=== PATIENT | male | born 1995 | race Caucasian/White ===

== ENCOUNTER 2018-04-11 00:55 | Emergency (ER) | payer SELFPAY ==
--- NOTE | 2018-04-11 00:55 | DT_ITS ---
This patient was seen during an EMR downtime April 07, 2018 - April 14, 2018. This patient may have a combination of paper and electronic documentation or all paper documentation. All documentation is viewable within the e-chart portion of [facility] for each patient visit.
== END 2018-04-11 02:02 | disposition home or self-care (01) ==
PROVIDERS: Emergency Provider Emergency Medicine
DX: R11.2 Nausea with vomiting, unspecified (principal); R10.13 Epigastric pain; F17.200 Nicotine dependence, unspecified, uncomplicated; F17.220 Nicotine dependence, chewing tobacco, uncomplicated
CPT/HCPCS: 99283

== ENCOUNTER 2020-01-25 20:01 | Emergency (ER) | payer SELFPAY ==
[2020-01-25 20:03] VITALS: BP 137/83; PULSE 107; RESP 18; TEMP 36.4; O2SAT 95; BMI 34.0
--- NOTE | 2020-01-25 20:17 | ED.DEP ---
ED Disposition - Plan for ED Patient: Instructions: Dental Pain Prescriptions: Naproxen [Naprosyn] 500 mg PO BID PRN #20 tablet Penicillin V Potassium 500 mg PO 4X/DAY #40 tablet Referrals: Care Physician,No Primary [Primary Care Provider] -
--- NOTE | 2020-01-25 20:21 | ED.VISSUMM ---
- ER Visit Summary Date of Service: 01/25/20 Chief Complaint: Gum pain History of Present Illness: The patient is a 24 M presenting with pain in his left upper gums and teeth for the past week. He states he has been unable to get into a dentist due to the coronavirus outbreak. He denies fever. He has had these symptoms in the past. Denies other complaints. Physical Examination: Vitals are stable. Patient is afebrile. Alert no acute distress. HEENT exam widespread dental decay. Gums are erythematous. No fluctuance. No sublingual edema. Neck is supple. Lungs are clear and equal bilaterally. Heart is regular rate and rhythm. Extremities are unremarkable. Skin is warm and dry. Remainder of exam is unremarkable. Emergency Department Course and Treatment: There is no area of fluctuance amenable for I&D at this time. He is given prescription for Pen-Vee K. Advised to return to the ED if he has any worsening complaints. Advised to follow-up with dentist when able. Disposition: Discharge home Impression: Odontalgia This note was generated with [employer] dictation software. It may contain incorrect words, spelling, and punctuation that were not noted in review of the chart prior to signing ED Disposition - Plan for ED Patient: Instructions: Dental Pain Prescriptions: Naproxen [Naprosyn] 500 mg PO BID PRN #20 tab Prescription Printed Penicillin V Potassium 500 mg PO 4X/DAY #40 tab Prescription Printed Referrals: Care Physician,No Primary [Primary Care Provider] -
[2020-01-25] MEDS: Naproxen 500 MG Tablet PO (20:36)
[2020-01-25] MEDS: Penicillin Vk 250 MG Tablet 500 MG PO (20:36)
[2020-01-25 20:38] VITALS: RESP 17
== END 2020-01-25 20:38 | disposition home or self-care (01) ==
LOC: ED 20:29
PROVIDERS: Emergency Provider Emergency Medicine
DX: K08.89 Other specified disorders of teeth and supporting structures (principal); K02.9 Dental caries, unspecified; Z72.0 Tobacco use
CPT/HCPCS: 99283

== ENCOUNTER 2020-02-28 19:42 | Emergency (ER) | payer SELFPAY ==
[2020-02-28 19:43] VITALS: BP 143/86; PULSE 92; RESP 18; TEMP 36.4; O2SAT 95; BMI 29.2
--- NOTE | 2020-02-28 19:57 | ED.DCSUM_ITS ---
- ER Visit Summary Date of Service: 02/28/20 Chief Complaint: Dental pain History of Present Illness: The patient is a 24 M who cannot remember his dentist name and does not have a primary care physician. He reports he has pain in his left mandibular second molar that began approximately 1 week ago. States that it seems to be spreading through his gums. States he has an aching pain is 1010 at worst and 6 out of 10 currently. Is worsened by eating and he is taking ibuprofen without relief. Does complain of hot and cold sensitivity. Patient reports that he was here a month ago and was not given a prescription for an antibiotic. Physical Examination: Vitals: Stable. Afebrile. Mouth: No trismus. No edema of the floor of the mouth. Pain with percussion of of the left mandibular first and second molars. There are obvious caries and decay at the lateral base of the second molar. There is no focal abscess. No facial swelling. General: A&O x 3. NAD. Cardiovascular exam: Regular rate and rhythm, no murmur, rub or gallop. Respiratory exam: Clear to auscultation bilaterally. No wheezes or stridor. Abdominal exam: Soft, nontender, nondistended, normal bowel sounds. No peritoneal signs. Extremity: No clubbing, cyanosis, or edema. Emergency Department Course and Treatment: Patient was given a dose of penicillin, naproxen, and Tylenol here. Treatment Plan: Discussed the patient that he was given a prescription for penicillin last time. It is up to him to get this prescription that he is given again for penicillin filled and to take it. Follow-up with a dentist as soon as possible. Disposition: To home in improved and stable condition. Impression: 1. Dental pain. This note was generated with [employer] software. It may contain incorrect words, spelling, and punctuation that were not noted in review of the chart prior to signing ED Disposition - Plan for ED Patient: Disposition: Home or Assisted Living Instructions: ED Tooth Pain Prescriptions: Naproxen [Naprosyn] 500 mg PO BID #14 tab Prescription Printed Penicillin V Potassium 500 mg PO 4X/DAY #40 tab Prescription Printed Referrals: Dentist,Your [STAFF PHYSICIAN] - As soon as possible
[2020-02-28] MEDS: Naproxen 250 MG Tablet 500 MG PO (20:05)
[2020-02-28] MEDS: Penicillin Vk 250 MG Tablet 500 MG PO (20:05)
[2020-02-28] MEDS: Acetaminophen 500 MG Tablet 1000 MG PO (20:06)
[2020-02-28 20:10] VITALS: RESP 16
== END 2020-02-28 20:11 | disposition home or self-care (01) ==
LOC: ED 20:08
PROVIDERS: Emergency Provider Emergency Medicine
DX: K08.89 Other specified disorders of teeth and supporting structures (principal); R05 Cough; R11.0 Nausea; Z72.0 Tobacco use
CPT/HCPCS: 99283

== ENCOUNTER 2021-01-22 22:04 | Emergency (ER) | payer SELFPAY ==
[2021-01-22 22:04] VITALS: BP 136/89; PULSE 89; RESP 18; TEMP 36.3; O2SAT 94; BMI 34.8
--- NOTE | 2021-01-22 22:11 | ED.DCSUM_ITS ---
History of Present Illness Chief Complaint: Headache Informant: Patient Onset: Yesterday Context: Gradual Onset Timing: Continuous Current Severity: Moderate Maximum Severity: Moderate Narrative: Patient is a 25-year-old male presents to the emergency department dental pain and headache. Patient states that he chipped his tooth about 3 days ago. Over the past 24 hours, has had increasing pain. He states is very tender. He states because of that, he developed a secondary headache. He denies fever or chills. He has been nauseated. He states he had about 6 episodes of vomiting. He denies vision change, neck pain, or other systemic symptoms. He denies trouble speaking or swallowing. Prior similar symptoms: Yes Recent Illness/Hospitalization: No Past Medical History - Allergies and Home Meds Allergies/Adverse Reactions: Allergies No Known Allergies Allergy (Verified 02/28/20 19:43) Primary Care Physician: Care Physician,No Primary [Primary Care Provider] - Prior records reviewed: Yes Past Medical History: None Surgical History: no surgical history Smoking Status: Current every day smoker Review of Systems General: Denies: Chills, Fever, Sweats Eyes: Denies: Visual changes - bilaterally, Diplopia ENT: Denies: Rhinorrhea, Sore throat Cardiovascular: Denies: Chest pain, Palpitations Respiratory: Denies: Dyspnea, Cough, Dyspnea on exertion Gastrointestinal: Reports: Nausea, Vomiting. Denies: Abdominal pain, Diarrhea, Melena, Hematochezia Genitourinary: Denies: Dysuria, Hematuria, Frequency Musculoskeletal: Denies: Back pain, Extremity Pain Skin: Denies: Rash, Wounds Neurological: Reports: Headache. Denies: Weakness, Numbness Physical Exam Vital Signs/Narrative: Vital Signs Temp Pulse Resp BP Pulse Ox 01/22/21 22:04 97.4 F L 89 18 136/89 H 94 Inital Vital Signs reviewed: Yes General: Well nourished, Well developed, No Acute Distress Head: Normocephalic, Atraumatic Eyes: Perrl, EOMI ENT: Moist mucous membranes, No rhinorrhea, - - Oromucosa is pink. The patient does have small dental chip Neck: Supple, Nontender Cardiovascular: Regular rate, Regular rhythm, No murmurs Respiratory: No distress, CTA bilaterally, Chest nontender Abdomen: Soft, Nontender, Nondistended, Normal bowel sounds Back: Nontender, Normal Inspection Extremities: Nontender, No edema Skin: Normal color, No rash Neurological: Alert, Oriented x3, Cranial nerves II-XII grossly intact, Normal Strength, Normal Sensation Psychological: Normal affect, Normal Mood Diagnostic/Tx/Re-eval - Medical Decision Making Patient presents with headache, nausea, vomiting, dental pain. He is very well- appearing. He is not meningitic or encephalopathic. There is no evidence of Valerio angina. He has no submental fullness. Patient was treated with IM Toradol and Phenergan. He will be kept on Zofran and Naprosyn, along with penicillin. He will be given outpatient dentistry follow-up. Impression 1. Dental pain ED Disposition - Plan for ED Patient: Instructions: ED Dental Pain Prescriptions: Naproxen [Naprosyn] 500 mg PO BID PRN #20 tablet Prescription Printed Penicillin V Potassium 500 mg PO 4X/DAY #40 tablet Prescription Printed Ondansetron [Zofran Odt] 4 mg PO Q8H PRN PRN #10 tablet PRN Reason: Nausea Prescription Printed Referrals: Care Physician,No Primary [Primary Care Provider] -
[2021-01-22] MEDS: Ketorolac 60 MG/2 ML Vial IM (22:22)
[2021-01-22] MEDS: proMETHazine 25 MG/ML Syringe 12.5 MG IM (22:22)
== END 2021-01-22 22:38 | disposition home or self-care (01) ==
LOC: ED 22:35
PROVIDERS: Emergency Provider Emergency Medicine
DX: K08.89 Other specified disorders of teeth and supporting structures (principal); S02.5XXA Fracture of tooth (traumatic), initial encounter for closed fracture; X58.XXXA Exposure to other specified factors, initial encounter; Y93.9 Activity, unspecified; Y92.9 Unspecified place or not applicable; Y99.9 Unspecified external cause status; R51.9 Headache, unspecified; R11.2 Nausea with vomiting, unspecified; F17.200 Nicotine dependence, unspecified, uncomplicated
CPT/HCPCS: 96372; 99282

== ENCOUNTER 2021-05-05 12:00 | Emergency (ER) | payer SELFPAY ==
[2021-05-05 12:00] VITALS: BP 136/81; PULSE 101; RESP 16; TEMP 36.5; O2SAT 92; BMI 34.9
--- NOTE | 2021-05-05 12:24 | EX.ED.VIS.UR ---
HPI HPI - URI History of Present Illness Chief Complaint: Cold Sx Informant: patient Onset/Context/Timing Onset: Days Current Severity: Mild Maximum Severity: Mild Associated Symptoms Associated Symptoms: Positive for Nasal Congestion and Sinus Pressure; Negative for Shortness of Breath Narrative Narrative: 26-year-old male no severe past medical or surgical history. Currently on no medications. States has had URI symptoms since Saturday evening. Sinus congestion stuffy nose. Fever as high as 100.4. He denies any chest pain or shortness of breath. Mild cough. He states nasal drainage is green. He denies any abdominal pain. No vomiting or diarrhea. No sore throat. He and his female friend is with him want the patient to have Covid testing. Prior similar symptoms: Yes Recent Illness/Hospitalization: No ROS ROS ED ROS Narrative URI symptoms with cough, nasal congestion and mild fever. Review of Systems ROS Unobtainable: Denies due to encephalopathy Constitutional Constitutional ED: Reports fever(s) Eyes Eyes: Denies change in vision ENT ENT ED: Reports rhinorrhea; Denies ear pain or sore throat Cardiovascular Cardiovascular: Denies chest pain Respiratory/Chest Respiratory/Chest: Reports cough and sputum; Denies dyspnea Gastrointestinal Gastrointestinal: Denies abdominal pain, diarrhea, nausea or vomiting Genitourinary Genitourinary ED: Denies dysuria Musculoskeletal Musculoskeletal: Denies myalgias Integumentary Denies rash Neurologic Neurologic: Denies headache(s) Psychiatric Psychiatric: Denies depression Endocrine Endocrinology: Denies polyuria Hematologic/Lymphatic Hematologic/Lymphatic: Denies easy bruising Allergic/Immunologic Allergic/Immunologic ED: Denies urticaria PFSH PFSH no medical history Home Medications naproxen 500 mg PO BID PRN #20 tablet 01/22/21 [Rx Last Taken Unknown] ondansetron 4 mg PO Q8H PRN PRN #10 tablet 01/22/21 [Rx Last Taken Unknown] penicillin V potassium 500 mg PO 4X/DAY #40 tablet 01/22/21 [Rx Last Taken Unknown] Allergy/AdvReac Type Severity Reaction Status Date / Time No Known Allergies Allergy Verified 05/05/21 12:05 no surgical history Social History Smoking Status: Current every day smoker tobacco type: cigarettes EXAM Physical Exam Narrative Exam Narrative: Well-appearing male. Vital signs stable afebrile. Pulse ox 92% on room air no signs hypoxia. HEENT exam nasal congestion. Clear to green nasal drainage. TMs and posterior pharynx normal. Const Vital Signs: 05/05/21 12:00 05/05/21 12:42 Temperature 97.7 F L Temperature Source Temporal Pulse Rate 101 H Respiratory Rate 16 Respiratory Effort Normal Respiratory Depth Normal Respiratory Pattern Normal Blood Pressure 136/81 H Blood Pressure Mean 99 Pulse Ox 92 Oxygen Delivery Method Room Air Room Air Positive well nourished and well developed General Appearance ED: well developed; Negative for pallor HEENT Reports TM's clear and moist mucous membranes normocephalic and atraumatic; Negative for scalp tenderness Face and Sinus: Negative for sinus tenderness or facial tenderness External Ear: external ears normal External Auditory Canal: EAC's normal Tympanic Membrane ED: Yes TM's clear Eyes PERRL and EOMs intact bilaterally Neck no lymphadenopathy, supple, no meningeal signs and no JVD General: Negative for anterior neck swelling Resp normal respiratory effort and clear to auscultation bilaterally Auscultation: Negative for rales, rhonchi or wheezes Cardio S1 normal heart sound, S2 normal heart sound and no murmurs Rate: regular rate Rhythm: regular rhythm GI non-tender, non-distended and no masses Auscultation: normoactive bowel sounds Palpation: soft; Negative for tender or guarding Back/Spine no CVA tenderness and normal ROM General Back: Negative for CVA tenderness Cervical Spine: Negative for cervical spine tenderness Extremity normal to inspection Neuro oriented x3 and CN's II-XII intact bilaterally Sensorium / Orientation: alert, oriented to person, oriented to place and oriented to time; Negative for orientation impaired, lethargic or stuporous Motor Exam: strength 5/5 throughout; Negative for general weakness Psych mental status grossly normal Skin General Skin Exam: Negative for jaundice or pallor Lesions: no lesions Rashes: no rashes MDM MDM MDM Narrative Medical decision making narrative: 26-year-old male history exam consistent with a viral URI. Requested Covid testing which is being obtained. Lab Data Attestation: I reviewed the patient's lab results. Lab results narrative: Covid test negative. Patient is doing well on repeat exam at 1:36 PM and will be discharged home. Discharge Plan Triage Chief Complaint: Cold Sx ED Provider: Leandro Leigh Dx/Rx/DC Orders Clinical Impression: Viral upper respiratory infection Instructions: ED Viral Syndrome (Adult) Prescriptions: No Action penicillin V potassium 500 MG tablet 500 mg PO 4X/DAY Qty: 40 RF: 0 ondansetron 4 MG tablet 4 mg PO Q8H PRN PRN (Reason: Nausea) Qty: 10 RF: 0 naproxen 500 MG tablet 500 mg PO BID PRN Qty: 20 RF: 0 Primary Care Provider: Care Physician,No Primary Referrals: Abdiel Flores MD [STAFF PHYSICIAN] - 1 Week if not improving Care Physician,No Primary [Primary Care Provider] - Activity Restrictions/Additional Instructions: Plenty of fluids and rest. Tylenol and Motrin for body aches and any fever. Follow-up if not improving in a week. Return if feeling a lot worse. Disposition Disposition: Home, Self Care
[2021-05-05 12:42] VITALS: O2SAT 96
== END 2021-05-05 14:35 | disposition home or self-care (01) ==
LOC: ED 12:36
PROVIDERS: Emergency Provider Emergency Medicine
DX: J06.9 Acute upper respiratory infection, unspecified (principal); Z20.822 Contact with and (suspected) exposure to COVID-19; F17.210 Nicotine dependence, cigarettes, uncomplicated
CPT/HCPCS: 87426; 99282

== ENCOUNTER 2021-09-30 11:43 | Emergency (ER) | payer MEDICARE, SELFPAY ==
[2021-09-30 11:44] VITALS: BP 187/97; PULSE 90; RESP 20; TEMP 36.1; O2SAT 96; BMI 30.7
[2021-09-30 11:47] VITALS: BP 187/97; PULSE 90; RESP 20; TEMP 36.1; O2SAT 95
[2021-09-30 11:52] VITALS: O2SAT 95; O2SAT 96
--- NOTE | 2021-09-30 12:25 | EKG12_ITS ---
Test Reason : SOB Blood Pressure : / mmHG Vent. Rate : 088 BPM Atrial Rate : 088 BPM P-R Int : 146 ms QRS Dur : 094 ms QT Int : 342 ms P-R-T Axes : 058 026 037 degrees QTc Int : 413 ms Normal sinus rhythm Normal ECG Confirmed by ANTWON ALAN, LIAM ([id number]), editor house organ LORAINE JAVIER ([id number]) on 10/03/2021 8:51:54 AM Referred By: ORLIN/RUSS Confirmed By:LIAM KAPOOR MD
--- NOTE | 2021-09-30 12:26 | EDS_ITS ---
HPI History of Present Illness Chief Complaint: Shortness of Breath Informant: patient Narrative Narrative: 26-year-old male states that yesterday morning around 0200 hrs. he woke up short of breath. States he believes he stopped breathing in his sleep. Could not catch his breath so he went to [place] ED. Patient is a very poor historian and has no linear timeline of explaining to me what has been going on and only give partial answers to questions. But I get the impression they did a chest x-ray and a Covid test was negative and given prescription for an inhaler. He states that now he has developed a pain in his right shoulder and has a sensation that his lungs are on fire. He notes a cough and nasal congestion. He told nursing he lost his sense of taste and smell. No fevers. PFSH PFSH Home Medications naproxen 500 mg PO BID PRN #20 tablet 01/22/21 [Rx Last Taken Unknown] ondansetron 4 mg PO Q8H PRN PRN #10 tablet 01/22/21 [Rx Last Taken Unknown] penicillin V potassium 500 mg PO 4X/DAY #40 tablet 01/22/21 [Rx Last Taken Unknown] doxycycline monohydrate 100 mg PO BID #20 capsule 09/30/21 [Rx Last Taken Unknown] Allergy/AdvReac Type Severity Reaction Status Date / Time No Known Allergies Allergy Verified 09/30/21 11:47 Social History Smoking Status: Current every day smoker tobacco type: cigarettes ROS ROS ED Constitutional Constitutional ED: Denies chills, fever(s) or weight loss Eyes Eyes: Denies change in vision or diplopia ENT ENT ED: Reports other Details: Nasal congestion ; Denies ear pain, rhinorrhea or sore throat Cardiovascular Cardiovascular: Reports chest pain; Denies orthopnea, palpitations or racing heartbeat Respiratory/Chest Respiratory/Chest: Reports cough, dyspnea and dyspnea on exertion; Denies orthopnea Gastrointestinal Gastrointestinal: Denies abdominal pain, diarrhea, nausea or vomiting Genitourinary Genitourinary ED: Denies dysuria, hematuria or urinary frequency Musculoskeletal Musculoskeletal: Denies arthralgias or myalgias Integumentary Denies abscess or rash Neurologic Neurologic: Denies headache(s) or weakness Psychiatric Psychiatric: Denies anxiety, depression, suicidal ideation or suicidal thoughts Endocrine Endocrinology: Denies polydipsia, polyphagia or polyuria Allergic/Immunologic Allergic/Immunologic ED: Denies mouth swelling, tongue swelling or urticaria EXAM Physical Exam Const Vital Signs: 09/30/21 11:44 09/30/21 11:47 09/30/21 11:52 Temperature 97 F L 97 F L Temperature Source Temporal Temporal Pulse Rate 90 90 Respiratory Rate 20 H 20 H Respiratory Effort Short of Breath Labored Respiratory Depth Normal Blood Pressure 187/97 H 187/97 H Blood Pressure Mean 127 127 Pulse Ox 96 95 95 Oxygen Delivery Method Room Air Room Air Room Air 09/30/21 13:16 09/30/21 13:35 Temperature Temperature Source Pulse Rate 89 65 Respiratory Rate 16 16 Respiratory Effort Respiratory Depth Blood Pressure 111/64 Blood Pressure Mean 79 Pulse Ox 95 Oxygen Delivery Method Room Air Positive well nourished, well developed and obese General Appearance ED: well developed Nutritional Appearance: obese HEENT Reports normocephalic, head/scalp atraumatic, TM's clear and moist mucous membranes HEENT Narrative: Mild turbinate edema atraumatic Tympanic Membrane ED: Yes TM's clear Eyes PERRL and EOMs intact bilaterally Neck no lymphadenopathy, supple and no JVD Resp normal respiratory effort and clear to auscultation bilaterally Cardio regular rate, regular rhythm and no murmurs GI normal to inspection, nondistended, normoactive bowel sounds and non-tender Palpation: soft Back/Spine no CVA tenderness and normal ROM Extremity normal to inspection General Extremety ED: Negative for edema General Extremity: Negative for edema Neuro oriented x3 and CN's II-XII intact bilaterally Sensorium / Orientation: alert Motor Exam: strength 5/5 throughout Psych mental status grossly normal Mood & Affect: Negative for depressed or tearful Skin no rashes or lesions noted and no wounds MDM MDM MDM Narrative Medical decision making narrative: Interpretation of chest x-ray is possible early infiltrate on the right. White count is elevated 18.4. D-dimer 0.28. Troponin negative. Patient received a dose of Toradol and a DuoNeb. He is feeling better. His Covid swab is negative. Patient will prescribe doxycycline. He has an inhaler. Continued anti-inflammatories follow-up with primary care if not improved return if worsening or concerns Lab Data Attestation: I reviewed the patient's lab results. Labs: Laboratory Results - last 24 hr 09/30/21 09/30/21 09/30/21 12:45 12:45 12:45 WBC 18.4 H RBC 5.33 Hgb 16.1 Hct 48.5 MCV 91.0 MCH 30.2 MCHC 33.2 RDW Std Deviation 43.1 RDW Coeff of Angeli 13.0 Plt Count 362 MPV 9.9 Immature Gran % (Auto) 0.300 Neut % (Auto) 68.8 Lymph % (Auto) 20.5 [place] % (Auto) 6.9 Eos % (Auto) 3.0 Baso % (Auto) 0.5 Absolute Neuts (auto) 12.6 H Absolute Lymphs (auto) 3.77 Nucleated RBC % 0 D-Dimer Quant (PE/DVT) 0.28 Sodium 142 Potassium 4.6 Chloride 111 H Carbon Dioxide 29.0 Anion Gap 2 L BUN 10 Creatinine 1.10 Estim Creat Clear Calc 108.39 Est GFR (MDRD) Af Amer 104 Est GFR (MDRD) Non-Af 86 BUN/Creatinine Ratio 9.1 L Glucose 91 Calcium 9.4 Troponin I High Sens < 3 L Radiography Diagnostic Testing: Clinical Impression(s) from Imaging Studies Chest X-Ray 09/30/21 12:50 IMPRESSION: Subtle prominent interstitial markings could reflect early infiltrates. Electronically Signed: Martinez Lidya, at 13:08 EST Tel , Service support , EKG Initial EKG: Attestation: I personally reviewed and interpreted this EKG as follows: Comments: Normal sinus rhythm with a ventricular rate of 88 bpm. Discharge Plan Triage Chief Complaint: Shortness of Breath ED Provider: Boogie Cuellar Dx/Rx/DC Orders Clinical Impression: Pneumonia Instructions: ED Pneumonia (Adult) Prescriptions: New doxycycline monohydrate 100 MG capsule 100 mg PO BID Qty: 20 RF: 0 No Action penicillin V potassium 500 MG tablet 500 mg PO 4X/DAY Qty: 40 RF: 0 ondansetron 4 MG tablet 4 mg PO Q8H PRN PRN (Reason: Nausea) Qty: 10 RF: 0 naproxen 500 MG tablet 500 mg PO BID PRN Qty: 20 RF: 0 Primary Care Provider: Care Physician,No Primary Referrals: Rosina Lancaster [NON-STAFF] - As Needed (for primary care) Care Physician,No Primary [Primary Care Provider] - Disposition Disposition: Home, Self Care
[2021-09-30] MEDS: Ketorolac 30 MG/ML Syringe IV (12:45)
--- NOTE | 2021-09-30 12:50 | RAD_ITS ---
STUDY: X-RAY CHEST REASON FOR EXAM: Male, 26 years old. Cough. TECHNIQUE: Single AP portable view of the chest. COMPARISON: None. FINDINGS: Subtle prominent interstitial markings could represent early infiltrates. There is no demonstrated pleural abnormality. Borderline cardiac silhouette. Normal mediastinum and jai. Normal visualized pulmonary arteries. Normal visualized aortic arch and descending thoracic aorta. Normal visualized thoracic spine. Normal visualized ribs, clavicles, and shoulders. There is no demonstrated abnormality of the visualized soft tissue structures of the upper abdomen. RAD/Chest 1 View (Portable) IMPRESSION: Subtle prominent interstitial markings could reflect early infiltrates. Electronically Signed: Martinez Bose, at 13:08 EST Tel , Service support ,
[2021-09-30 13:00] LABS: Absolute Lymphocyte Count 3.77 X10^3/uL (0.83-4.51); Absolute Neutrophil Count 12.6 X10^3/uL (2.0-7.7); Basophil% 0.5 % (0-1); Eosinophil# 0.56 X10^3/uL; Hematocrit 48.5 % (40-54); Hemoglobin 16.1 g/dL (13.0-16.5); Lymphocyte # 3.77 X10^3/ul (0.83-4.51); Lymphocyte % 20.5 % (19-41); Mean Corp Hgb Conc 33.2 g/dL (32-36); Mean Corpuscular Hgb 30.2 pg (27.0-32.0); Mean Platelet Vol. 9.9 fl (6.2-12.0); Monocyte# 1.26 X10^3/uL; Monocyte% 6.9 % (0-10); NRBC Flagged by Analyzer 0 % (0-5); Neutrophil # 12.62 X10^3/uL (2.7-7.7); Neutrophil % 68.8 % (47-70); Platelet Count 362 K/mm3 (150-450); RBC Distribution Width SD 43.1 fl (35.1-43.9); Red Blood Count 5.33 M/mm3 (4.6-6.2); White Blood Count 18.4 K/mm3 (4.4-11.0)
[2021-09-30 13:08] LABS: D-Dimer Quantitative (DVT/PE) 0.28 FEU/ug/m (0.27-0.49)
[2021-09-30 13:16] VITALS: BP 111/64; PULSE 89; RESP 16; O2SAT 95
[2021-09-30 13:28] LABS: Anion Gap 2 (5-15); BUN 10 mg/dL (7-18); BUN/Creat Ratio 9.1 RATIO (10-20); Calcium,Total 9.4 mg/dL (8.5-10.1); Chloride 111 mmol/L (98-107); EST Glomerular Filtration Rate 86 mL/min (>60); Est Glom Filt Rate - Afr Amer 104 mL/min (>60); Estimated Creatinine Clearance 108.39 ml/min; Glucose 91 mg/dL (74-106); Potassium 4.6 mmol/L (3.5-5.1); Sodium Level 142 mmol/L (136-145); Troponin-I HS < 3 pg/mL (3.0-78.0)
[2021-09-30] MEDS: Ipratropium/Albuterol Sulfate 3 ML AMPUL.NEB INHALATION (13:32)
[2021-09-30 13:35] VITALS: PULSE 65; RESP 16
== END 2021-09-30 14:26 | disposition home or self-care (01) ==
PROVIDERS: Emergency Provider Emergency Medicine
DX: J18.9 Pneumonia, unspecified organism (principal); Z20.822 Contact with and (suspected) exposure to COVID-19; M25.511 Pain in right shoulder; E66.9 Obesity, unspecified; F17.210 Nicotine dependence, cigarettes, uncomplicated
CPT/HCPCS: 71045; 80048; 84484; 85025; 85379; 87426; 93005; 94640; 96374; 99282

== ENCOUNTER 2022-07-15 13:38 | Emergency (ER) | payer OTHER, SELFPAY ==
[2022-07-15 13:39] VITALS: BP 128/82; PULSE 93; RESP 18; TEMP 37.2; O2SAT 94; BMI 30.7
--- NOTE | 2022-07-15 14:53 | EDS_ITS ---
HPI HPI - URI History of Present Illness Chief Complaint: Shortness of Breath Detail of Chief Complaint: Cough and shortness of breath that started 5 days ago Informant: patient Narrative Narrative: Patient presents to the emergency department complaint of not feeling well for the last 5 days. Patient started with a cough and he thought he had a head cold. Patient complains of wheezing and he ran out of his inhaler. He has a history of asthma. He denies fever. He did have a coworker recently that was sick but was not diagnosed with COVID. Patient tested for COVID at home yesterday and was negative. Cough mostly nonproductive. Patient denies sore throat or headache. ROS ROS ED Review of Systems ROS Unobtainable: other Constitutional Constitutional ED: Reports lethargy; Denies chills, fever(s), sweats or weight loss Eyes Eyes: Denies blurry vision, change in vision or diplopia ENT ENT ED: Denies rhinorrhea or sore throat Cardiovascular Cardiovascular: Denies chest pain, orthopnea or racing heartbeat Respiratory/Chest Respiratory/Chest: Reports cough, dyspnea and dyspnea on exertion; Denies orthopnea or sputum Gastrointestinal Gastrointestinal: Denies abdominal pain, diarrhea, nausea or vomiting Genitourinary Genitourinary ED: Denies dysuria, hematuria or urinary frequency Musculoskeletal Musculoskeletal: Denies arthralgias, back pain, myalgias or neck pain Integumentary Denies abscess, Abrasions or rash Neurologic Neurologic: Denies headache(s) or weakness Psychiatric Psychiatric: Denies anxiety, depression or suicidal thoughts Endocrine Endocrinology: Denies polydipsia, polyphagia or polyuria Hematologic/Lymphatic Hematologic/Lymphatic: Denies easy bleeding, easy bruising or lymphadenopathy Allergic/Immunologic Allergic/Immunologic ED: Denies mouth swelling, tongue swelling or urticaria [facility] Medical History (Updated 07/15/22 @ 16:[address] Carson Corbin DO) Asthma Home Medications doxycycline monohydrate 100 mg capsule 100 mg PO BID #20 CAPSULES 07/15/22 [Rx Last Taken Unknown] prednisone 20 mg tablet 20 mg PO BID #10 tabs 07/15/22 [Rx Last Taken Unknown] Allergy/AdvReac Type Severity Reaction Status Date / Time No Known Allergies Allergy Verified 07/15/22 13:39 Social History Smoking Status: Current every day smoker tobacco type: cigarettes EXAM Physical Exam Const Vital Signs: 07/15/22 13:39 07/15/22 14:25 07/15/22 14:59 Temperature 98.9 F Temperature Source Temporal Pulse Rate 93 91 Respiratory Rate 18 20 H Respiratory Effort Normal Respiratory Pattern Normal Normal Blood Pressure 128/82 H Blood Pressure Mean 97 Pulse Ox 94 Oxygen Delivery Method Room Air Positive well nourished and well developed General Appearance ED: well developed and NAD HEENT Reports TM's clear and moist mucous membranes normocephalic and atraumatic; Negative for trauma or tenderness Tympanic Membrane ED: Yes TM's clear Eyes PERRL and EOMs intact bilaterally General Eye ED: Negative for pale conjunctiva or scleral icterus Neck no lymphadenopathy, supple and no JVD General: Negative for tenderness Chest Wall inspection of chest normal and palpation of chest normal Chest: Negative for tenderness Resp normal respiratory effort Resp Narrative: Patient with diffuse wheezes bilaterally with occasional rhonchi. No accessory muscle use or retractions. No conversational dyspnea. Effort and Inspection: Negative for respiratory distress or pain with movement Auscultation: wheezes; Negative for rhonchi or diminished lung sounds Cardio regular rate, regular rhythm, S1 normal heart sound, S2 normal heart sound and no murmurs Peripheral Pulses: pulses 2+ throughout GI normal to inspection, nondistended, normoactive bowel sounds, soft to palpation, non-tender, non-distended and no masses Back/Spine no CVA tenderness and no thoracic nor lumbar tenderness Extremity normal to inspection General Extremety ED: Negative for edema General Extremity: Negative for edema Neuro oriented x3, CN's II-XII intact bilaterally, no sensory deficits noted and gait normal Sensorium / Orientation: awake, alert, oriented to person, oriented to place and oriented to time Motor Exam: strength 5/5 throughout and strength abnormal Psych mental status grossly normal Skin no rashes or lesions noted and no wounds MDM MDM MDM Narrative Medical decision making narrative: Patient with increased markings in his lung bases. I will start him on doxycycline. COVID test was negative. Patient was given a DuoNeb aerosol and prednisone and symptomatically felt improved. At this point patient will be given referral to primary care physician for follow-up in 3 to 5 days. Radiography Diagnostic Testing: Clinical Impression(s) from Imaging Studies Chest X-Ray 07/15/22 15:24 IMPRESSION: Mild inflammation or infection in the lung bases. Electronically Signed: Elise Isaac MD at 15:50 EDT , 1 view chest x-ray obtained interpreted by myself as increased markings in the basis I thought may be consistent with atelectasis. Radiology felt there was mild inflammation or infection in lung bases. Discharge Plan Triage Chief Complaint: Shortness of Breath ED Provider: Carson Corbin Dx/Rx/DC Orders Clinical Impression: Asthmatic bronchitis Instructions: ED Bronchitis with Wheezing (Adult) Prescriptions: New prednisone 20 mg tablet 20 mg PO BID Qty: 10 0RF doxycycline monohydrate 100 mg capsule 100 mg PO BID Qty: 20 0RF Primary Care Provider: Care Physician,No Primary Referrals: Jose Avelar MD [Med Staff - Active Staff] - 3-5 Days Care Physician,No Primary [Primary Care Provider] - Disposition Disposition: Home, Self Care
[2022-07-15] MEDS: predniSONE 20 MG Tablet 40 MG PO (14:54)
[2022-07-15] MEDS: Ipratropium/Albuterol Sulfate 3 ML AMPUL.NEB INHALATION (14:57)
[2022-07-15 14:59] VITALS: PULSE 91; RESP 20
--- NOTE | 2022-07-15 15:24 | RAD_ITS ---
HISTORY: cough. TECHNIQUE: XR Chest 1 View. COMPARISON: 09/30/2021. FINDINGS: CARDIOMEDIASTINAL BORDERS: Cardiac silhouette within normal limits in size. Mediastinal contour unremarkable. LUNGS: Increased interstitial markings in the lung bases. PLEURA: No pleural effusion or pneumothorax seen. OSSEOUS STRUCTURES: Unremarkable. RAD/Chest 1 View (Portable) IMPRESSION: Mild inflammation or infection in the lung bases. Electronically Signed: Elise Isaac MD at 15:50 EDT ,
[2022-07-15] MEDS: Doxycycline 100 MG CAPSULE PO (16:58)
[2022-07-15 17:05] VITALS: BP 140/104; PULSE 99; RESP 16; O2SAT 97
== END 2022-07-15 17:05 | disposition home or self-care (01) ==
PROVIDERS: Emergency Provider Emergency Medicine; Visit Provider Emergency Medicine
DX: J45.909 Unspecified asthma, uncomplicated (principal); Z20.822 Contact with and (suspected) exposure to COVID-19; F17.210 Nicotine dependence, cigarettes, uncomplicated
CPT/HCPCS: 71045; 87428; 94640; 99283

== ENCOUNTER 2023-05-04 16:37 | Emergency (ER) | payer SELFPAY ==
[2023-05-04 16:38] VITALS: BP 168/97; PULSE 988; RESP 16; TEMP 35.8; O2SAT 98; BMI 33.3
[2023-05-04 17:31] VITALS: O2SAT 97
--- NOTE | 2023-05-04 17:37 | EDS_ITS ---
HPI <RICA Rudd - Last Filed: 05/04/23 17:47> History of Present Illness Chief Complaint: Palpitations Narrative Narrative: Patient is a 28-year-old male with history of PTSD, anxiety, depression who presents to the emergency department for concerns of palpitations secondary to his new medication. Patient 2 days ago was placed on Wellbutrin, as well as fluoxetine. Patient states that the Wellbutrin is helping him quit smoking however the fluoxetine is causing him to have palpitations and feeling that he is short of breath. He had not felt this until he took the medications. Only taken 2 tabs. He called the nurse line who told him to come in to the emergency department. He denies any suicidal homicidal ideations. Patient denies any fever or chills. PFSH <RICA Rudd - Last Filed: 05/04/23 17:47> [facility] Medical History (Updated 05/04/23 @ 17:47 by RICA Rudd) Asthma Home Medications doxycycline monohydrate 100 mg capsule 100 mg PO BID #20 CAPSULES 07/15/22 [Rx Last Taken Unknown] prednisone 20 mg tablet 20 mg PO BID #10 tabs 07/15/22 [Rx Last Taken Unknown] Allergy/AdvReac Type Severity Reaction Status Date / Time bee venom protein (honey bee) Allergy Severe Anaphylaxis Verified 05/04/23 16:38 Social History Smoking Status: Current every day smoker tobacco type: cigarettes ROS <RICA Rudd - Last Filed: 05/04/23 17:47> ROS ED ROS Narrative Constitutional: Negative for fever, chills, weight loss, weakness Eyes: Negative for vision loss, vision change, double vision ENT: Negative for any sore throat, ear pain, congestion Cardiovascular: Negative for any chest pain, tightness. Positive palpitations Respiratory: Negative for any cough, sputum production, hemoptysis, dyspnea, dyspnea on exertion, orthopnea Gastrointestinal: Negative for any abdominal pain, nausea, vomiting, diarrhea, constipation, blood in stool, blood in vomit : Negative for any urinary frequency, dysuria, retention, blood in urine Muscle skeletal: Negative for any muscle joint pain, stiffness, myalgias, arthralgias, neck pain, back pain Neurological: Negative for any headache, syncope, numbness or tingling, dizziness Skin: Negative for any rashes, lumps, itching, abrasions, lacerations Psychiatric: Negative for any depression, anxiety, stress, suicidal ideation, homicidal ideation Hematologic: Negative for any easy bruising, excessive bruising, easy bleeding Allergies: Negative for any eczema, hives, rash EXAM <RICA Rudd - Last Filed: 05/04/23 17:47> Physical Exam Narrative Exam Narrative: Vital signs reviewed. Patient is alert and orient x4, patient is acting appropriate in no distress. HEET: Head normocephalic atraumatic, TMs clear bilaterally. Posterior pharynx is clear, moist mucous membranes. Nares clear bilaterally. Neck: Supple with no lymphadenopathy or tenderness. No signs of meningismus, negative jolt sign. Cardiac: Regular rate and rhythm no murmurs gallops or rubs, equal peripheral pulses bilaterally. Respiratory: Lungs clear to auscultation bilaterally. No chest tenderness. Abdomen: Soft, nontender, nondistended. No abdominal bruit or pulsatile masses. No hepatosplenomegaly Extremities: No peripheral edema, no signs of gross trauma or deformity. Active full range of motion of all extremities. Neuro: Cranial nerves II through XII intact, no focal neurological deficits. Skin: Clean dry and intact with no rash, purpura, petechiae, vesicles or pustules. Backs/flank: No CVA tenderness, no midline spinal tenderness, no deformity. Psych: Normal mood and affect. No SI, HI or acute psychosis. Const Vital Signs: 05/04/23 16:38 05/04/23 17:31 Temperature 96.5 F L Temperature Source Temporal Pulse Rate 988 H Respiratory Rate 16 Respiratory Effort Normal Non-Labored Respiratory Pattern Normal Blood Pressure 168/97 H Blood Pressure Mean 120 Pulse Ox 98 Oxygen Delivery Method Room Air Room Air <Dr. Bari Asencio MD - Last Filed: 05/05/23 00:55> Physical Exam Const Vital Signs: 05/04/23 16:38 05/04/23 17:31 Temperature 96.5 F L Temperature Source Temporal Pulse Rate 988 H Respiratory Rate 16 Respiratory Effort Normal Non-Labored Respiratory Pattern Normal Blood Pressure 168/97 H Blood Pressure Mean 120 Pulse Ox 98 Oxygen Delivery Method Room Air Room Air MDM <RICA Rudd - Last Filed: 05/04/23 17:47> [facility] EKG Normal sinus rhythm sinus arrhythmia: Attestation: I personally reviewed and interpreted this EKG as follows: Interpretation: Sinus Rhythm Comments: Normal sinus rhythm with sinus arrhythmia rate of 79 bpm, MO 144 ms, QRS duration 94 ms, no acute ST elevation, no acute infarct noted. Treatment and Re-Evaluation :: Patient appears generally well, patient appears nontoxic, vital signs are stable. Patient presents to the emergency department for concern of a adverse reaction to fluoxetine having palpitations, increased shortness of breath. Patient's EKG here had a heart rate of 79, patient appears well is in no distress. Patient's physical examination was grossly unremarkable, he had no adventitious lung sounds. Since the patient is only taken 2 tablets, he will stop the fluoxetine and follow-up in 2 days with his psychologist. He is happy with the plan of care, patient is in no distress. Patient's vital signs remained stable he was given return precautions. Patient stable for discharge. <Dr. Bari Asencio MD - Last Filed: 05/05/23 00:55> [facility] Narrative Medical decision making narrative: I have personally performed a face to face assessment of the patient and have reviewed the SHANIKA Note. I performed a substantive portion of the visit including all aspects of the following. My juan findings include: History: Patient complains that every time he takes fluoxetine he gets palpitations. He is not having symptoms now. He wants to know what he should do. Exam: Physical exam is normal. Unlike triage note, his heart rate is not 988. It is closer to 75. It is regular. His lungs are clear. Abdomen is benign. He has no peripheral edema or cords. He is awake alert and appropriate. Medical Decision Making: As patient has only had fluoxetine for 2 doses, I think we can stop this. There is no taper needed. He will contact his physician for further medication management Discharge Plan Triage Chief Complaint: Palpitations ED Midlevel Provider: Jose Heck ED Provider: Bari Asencio Dx/Rx/DC Orders Clinical Impression: Heart palpitations, Adverse drug reaction Instructions: ED Palpitations Prescriptions: No Action prednisone 20 mg tablet 20 mg PO BID Qty: 10 0RF doxycycline monohydrate 100 mg capsule 100 mg PO BID Qty: 20 0RF Stand Alone Forms: ED Work / School Excuse Primary Care Provider: Care Physician,No Primary Referrals: Care Physician,No Primary [Primary Care Provider] - Activity Restrictions/Additional Instructions: Please follow-up with your psychologist. Disposition Disposition: Home, Self Care Discharge Date/Time: 05/04/23 17:56
--- NOTE | 2023-05-04 17:52 | EKG12_ITS ---
Test Reason : CP/PALPITATIONS Blood Pressure : / mmHG Vent. Rate : 079 BPM Atrial Rate : 079 BPM P-R Int : 144 ms QRS Dur : 094 ms QT Int : 342 ms P-R-T Axes : 054 032 036 degrees QTc Int : 392 ms Normal sinus rhythm with sinus arrhythmia Normal ECG Confirmed by ANTWON ALAN, LIAM ([id number]), loan expeditor LORAINE JAVIER ([id number]) on 05/06/2023 12:37:17 PM Referred By: VERÓNICA/ANDER Confirmed By:LIAM KAPOOR MD
== END 2023-05-04 17:56 | disposition home or self-care (01) ==
PROVIDERS: Emergency Provider Emergency Medicine; Visit Provider Emergency Medicine
DX: R00.2 Palpitations (principal); F41.9 Anxiety disorder, unspecified; T50.905A Adverse effect of unspecified drugs, medicaments and biological substances, initial encounter; F17.210 Nicotine dependence, cigarettes, uncomplicated
CPT/HCPCS: 93005; 99282

== ENCOUNTER 2023-10-21 08:07 | Emergency (ER) | payer SELFPAY ==
[2023-10-21 08:08] VITALS: BP 134/85; PULSE 87; RESP 14; TEMP 36.6; O2SAT 98; BMI 34.3
--- NOTE | 2023-10-21 08:25 | ED.VIS.LOWEX ---
HPI History of Present Illness Chief Complaint: Lower Extremity Injury Narrative Narrative: 28-year-old male who denies significant past medical history presents with pain in both of his feet since yesterday. He states that he came to the emergency department yesterday because he had been walking in the rain, and his feet hurt. Additionally, he has to stand at work all day, does not drive, so he walks everywhere including to and from work. He states that his feet hurt him and he has bilateral foot pain. It is more of a burning pain and he feels like they are on fire. He saw the pharmacist who recommended a spray to use twice a day for a week. He was walking to work again today, and while he was not seen by a physician in the emergency department yesterday, he states he was told he has trench foot that he needs to keep his feet clean and dry. He change socks 3 times yesterday. He presents with worsening foot pain and redness. No fevers or chills, no other symptoms. [facility] Medical History Asthma Home Medications doxycycline monohydrate 100 mg capsule 100 mg PO BID #20 CAPSULES 07/15/22 [Rx Last Taken Unknown] prednisone 20 mg tablet 20 mg PO BID #10 tabs 07/15/22 [Rx Last Taken Unknown] Allergy/AdvReac Type Severity Reaction Status Date / Time bee venom protein (honey bee) Allergy Severe Anaphylaxis Verified 10/21/23 08:08 Social History Smoking Status: Current every day smoker tobacco type: cigarettes ROS ROS ED ROS Narrative Constitutional: No fever, no chills. HEENT: No sore throat. No neck pain. No loss of vision. No rhinorrhea. Cardiovascular: No chest pain. No palpitations. No pedal edema. Respiratory: No cough, no shortness of breath. Abdominal: No abdominal pain. No nausea. No vomiting. Genitourinary: No dysuria. No hematuria. Musculoskeletal: No myalgias. Lateral foot pain, burning. Neurologic: No headaches. No dizziness. No lightheadedness. Skin: No rash. Redness of both feet. Psychiatric: No depression. No anxiety. EXAM Physical Exam Narrative Exam Narrative: Focused physical examination reveals the patient to be afebrile. Vital signs noted. Nontoxic appearing. Regular rate and rhythm. Lungs clear to auscultation bilaterally. Abdomen soft and nontender with normal active bowel sounds. Inspection of the bilateral feet shows mild erythema and cracks in the skin consistent with tinea. There are calluses noted on his feet as well. Const Vital Signs: 10/21/23 08:08 Temperature 98 F Temperature Source Temporal Pulse Rate 87 Respiratory Rate 14 Blood Pressure 134/85 H Blood Pressure Mean 101 Pulse Ox 98 Oxygen Delivery Method Room Air MDM MDM MDM Narrative Medical decision making narrative: In the differential diagnosis is trench foot versus tinea pedis. I do not feel he has cellulitis of his feet that antibiotics are indicated. Given his burning sensation, he was told to keep his feet clean and dry, and use the [id number] spray. He will take [id number] analgesics. I do not feel narcotics are indicated. He will follow-up with a primary care provider and he was also referred to podiatry. He was given a note to be off work for today and tomorrow. I feel he can be discharged safely home with follow-up. Return instructions were reviewed. Disposition is discharged in stable condition. History & Record Review Discussion w/independent historian: Patient Additional record(s) reviewed:: Prior ED visit Discharge Plan Triage Chief Complaint: Lower Extremity Injury ED Provider: Norberto Card Dx/Rx/DC Orders Clinical Impression: Tinea pedis, Pain in both feet, Trench feet Instructions: ED Athlete's Foot, ED Screening Exam Medical Nonurgent, ED Pain, Acute, Uncertain Cause Prescriptions: No Action prednisone 20 mg tablet 20 mg PO BID Qty: 10 0RF doxycycline monohydrate 100 mg capsule 100 mg PO BID Qty: 20 0RF Stand Alone Forms: ED Work / School Excuse Primary Care Provider: Care Physician,No Primary Referrals: Marcos Valdivia DPM [Med Staff - Active Staff] - As Needed Rosina Lancaster [Non-Staff] - As soon as possible Care Physician,No Primary [Primary Care Provider] - Activity Restrictions/Additional Instructions: Keep your feet clean and dry. Use the spray that was given to you by the pharmacist. Ibuprofen as needed for pain. Disposition Disposition: Home, Self Care
== END 2023-10-21 08:38 | disposition home or self-care (01) ==
LOC: ED 08:36
PROVIDERS: Emergency Provider Emergency Medicine; Visit Provider Emergency Medicine
DX: B35.3 Tinea pedis (principal); M79.671 Pain in right foot; M79.672 Pain in left foot; J45.909 Unspecified asthma, uncomplicated; F17.210 Nicotine dependence, cigarettes, uncomplicated; Z79.899 Other long term (current) drug therapy
CPT/HCPCS: 99282

== ENCOUNTER 2023-11-07 09:37 | Emergency (ER) | payer SELFPAY ==
[2023-11-07 09:39] VITALS: BP 147/86; PULSE 115; RESP 24; TEMP 36; O2SAT 96; BMI 33.7
[2023-11-07 10:21] VITALS: BP 128/78; PULSE 87; RESP 20; TEMP 36.9; O2SAT 94
[2023-11-07] MEDS: Ibuprofen 600 MG Tablet PO (10:23)
[2023-11-07] MEDS: Acetaminophen 325 MG Tablet 650 MG PO (10:23)
--- NOTE | 2023-11-07 10:36 | EX.ED.DYSGE1 ---
HPI History of Present Illness Chief Complaint: Cold Sx Informant: patient Narrative Narrative: Patient is a 28-year-old male with history of vaping and mild intermittent asthma presenting with viral symptoms. Patient states he lost his sense of smell yesterday. Today he noticed that he lost his sense of taste when he tried eat breakfast this morning. He has been feeling tired and fatigued. He has sinus congestion and a mild itchy throat. He felt short of breath and his chest feels tight. He has a cough that is nonproductive. The symptoms started today. He took no [id number] cough medicine and states he was feeling better until he went to work and then he started feel really tired. States when he was walking here he coughs and when he almost threw up. Currently is feeling better now that he is resting. Does have a history of asthma but his albuterol inhaler is out. No other complaints or concerns at this time. No report of any fevers. [facility] Medical History Asthma Home Medications doxycycline monohydrate 100 mg capsule 100 mg PO BID #20 CAPSULES 07/15/22 [Rx Last Taken Unknown] prednisone 20 mg tablet 20 mg PO BID #10 tabs 07/15/22 [Rx Last Taken Unknown] albuterol sulfate 90 mcg/actuation aerosol inhaler (Ventolin HFA) 1 - 2 puff inhalation Q4H PRN PRN Wheezing #1 inh 11/07/23 [Rx Last Taken Unknown] Allergy/AdvReac Type Severity Reaction Status Date / Time bee venom protein (honey bee) Allergy Severe Anaphylaxis Verified 10/21/23 08:08 Social History Smoking Status: Current every day smoker tobacco type: cigarettes ROS ROS ED Constitutional Constitutional ED: Denies chills or fever(s) ENT ENT ED: Reports sore throat and other Details: Congestion, loss of sense of taste and smell ; Denies ear pain or rhinorrhea Cardiovascular Cardiovascular: Reports chest pain; Denies palpitations Respiratory/Chest Respiratory/Chest: Reports cough and dyspnea; Denies dyspnea on exertion Gastrointestinal Gastrointestinal: Reports nausea; Denies abdominal pain or vomiting Musculoskeletal Musculoskeletal: Reports myalgias; Denies arthralgias Integumentary Denies rash Neurologic Neurologic: Denies headache(s) or weakness Psychiatric Psychiatric: Reports anxiety Hematologic/Lymphatic Hematologic/Lymphatic: Denies easy bleeding or easy bruising EXAM Physical Exam Const Vital Signs: 11/07/23 09:39 11/07/23 09:38 11/07/23 10:21 Temperature 96.8 F L 98.4 F Temperature Source Temporal Oral Pulse Rate 115 H 87 Respiratory Rate 24 H 20 H Respiratory Effort Normal Non-Labored Respiratory Pattern Normal Blood Pressure 147/86 H 128/78 H Blood Pressure Mean 106 94 Pulse Ox 96 94 Oxygen Delivery Method Room Air Room Air 11/07/23 11:41 Temperature 98.4 F Temperature Source Pulse Rate 82 Respiratory Rate 16 Respiratory Effort Respiratory Pattern Blood Pressure Blood Pressure Mean Pulse Ox 94 Oxygen Delivery Method Positive well nourished and well developed General Appearance ED: well developed and NAD HEENT Reports TM's clear and moist mucous membranes HEENT Narrative: Minor nasal congestion on exam, normal oropharynx Tympanic Membrane ED: Yes TM's clear Eyes PERRL and EOMs intact bilaterally Neck no lymphadenopathy, supple and no JVD Chest Wall inspection of chest normal and palpation of chest normal Resp normal respiratory effort and clear to auscultation bilaterally Auscultation: Negative for rhonchi, wheezes or diminished lung sounds Cardio regular rate, regular rhythm and no murmurs GI normal to inspection, nondistended, normoactive bowel sounds and non-tender Extremity normal to inspection General Extremety ED: Negative for edema General Extremity: Negative for edema Neuro oriented x3 Sensorium / Orientation: alert Psych mental status grossly normal Mood & Affect: anxious Skin no rashes or lesions noted and no wounds MDM MDM MDM Narrative Medical decision making narrative: Patient is presenting with 24 hours of URI symptoms. Symptoms most consistent with COVID as he is also loss of sense of taste and smell. He appears nontoxic at this time. When he arrived to the ER he had walked here and he was mildly tachycardic and tachypneic however shortly after my evaluation his vital signs have completely normalized. He has clear breath sounds and is moving air well. Given the short onset of symptoms and the consolation of viral symptoms I do not think requires a chest x-ray or cardiopulmonary workup at this time. Will check for COVID, influenza and RSV as he is a candidate for antiviral therapy at this time. Is given Tylenol and Motrin in the ER for his myalgias. COVID, flu and RSV are negative. Patient counseled symptoms are still highly consistent with COVID-19 infection he should retest at home in 48 hours. Is given a prescription for an albuterol inhaler. Given a work note. Given return precautions. At this time we do not he requires steroids or antibiotics. He verbalizes agreement understand this plan. Discharged home in stable and improved condition. Discharge Plan Triage Chief Complaint: Cold Sx ED Provider: Michaela Storm Dx/Rx/DC Orders Clinical Impression: Viral upper respiratory infection Instructions: ED URI, Viral, No Abx (Adult) Prescriptions: New albuterol sulfate [Ventolin HFA] 90 mcg/actuation HFA aerosol inhaler 1 - 2 puff inhalation Q4H PRN PRN (Reason: Wheezing) Qty: 1 0RF No Action prednisone 20 mg tablet 20 mg PO BID Qty: 10 0RF doxycycline monohydrate 100 mg capsule 100 mg PO BID Qty: 20 0RF Stand Alone Forms: ED Work / School Excuse Primary Care Provider: Care Physician,No Primary Referrals: Rosina Lancaster [Non-Staff] - As soon as possible Care Physician,No Primary [Primary Care Provider] - Activity Restrictions/Additional Instructions: Profen and Tylenol. Use inhaler as prescribed. I recommend rechecking a home COVID test in 48 hours if you are still symptomatic. Your viral test for RSV, COVID and Flu. Disposition Disposition: Home, Self Care Discharge Date/Time: 11/07/23 12:46
[2023-11-07 11:41] VITALS: PULSE 82; RESP 16; TEMP 36.9; O2SAT 94
== END 2023-11-07 12:46 | disposition home or self-care (01) ==
PROVIDERS: Emergency Provider Emergency Medicine; Visit Provider Emergency Medicine
DX: J06.9 Acute upper respiratory infection, unspecified (principal); R06.82 Tachypnea, not elsewhere classified; R00.0 Tachycardia, unspecified; J45.20 Mild intermittent asthma, uncomplicated; Z11.52 Encounter for screening for COVID-19; F17.210 Nicotine dependence, cigarettes, uncomplicated
CPT/HCPCS: 87631; 99283

== ENCOUNTER 2025-01-06 05:47 | Emergency (ER) | payer SELFPAY ==
[2025-01-06 05:47] VITALS: BP 121/73; PULSE 118; RESP 18; TEMP 36.8; O2SAT 95; BMI 38.7
--- NOTE | 2025-01-06 06:13 | RAD_ITS ---
PROCEDURE: Frontal and lateral view REASON FOR EXAM: Cough. TECHNIQUE: Frontal and lateral views of the chest. COMPARISON: Chest x-ray dated 07/15/2022. FINDINGS: The cardiac silhouette appears prominent. There is increased vascular congestion. There is increased bibasilar infiltrates. No pneumothorax. No acute osseous abnormality seen. RAD/Chest PA and Lateral IMPRESSION: Finding may suggest developing pulmonary vascular congestion. Infectious proce ss is also possibility. Follow-up until resolution is recommended.. Reading Location: [id number]
--- NOTE | 2025-01-06 07:03 | EX.ED.DYSGE1 ---
HPI History of Present Illness Chief Complaint: Cold Sx Informant: patient Narrative Narrative: Patient is a 29-year-old male with past medical history of asthma. He reports that starting Saturday he developed subjective fevers and chills with congestion and cough. He reports that he has been using his albuterol inhaler which has helped symptoms but with his persistent cough and congestion he is concern for pneumonia or infection such as influenza or COVID and therefore comes in for evaluation. Patient denies any known sick contacts and he denies any need for supplemental oxygen at baseline [facility] Medical History Asthma Home Medications ?Medication ?Instructions ?Recorded ?Last Taken ?Type albuterol sulfate 90 mcg/actuation 1 - 2 puff inhalation Q4H PRN PRN 11/07/23 Unknown Rx aerosol inhaler (Ventolin HFA) Wheezing #1 inh azelastine 137 mcg (0.1 %) nasal 2 spray intranasal BID #30 mL 01/06/25 Unknown Rx spray codeine 10 mg-guaifenesin 100 mg/5 10 ml PO 4X/DAY PRN flu symptoms 7 01/06/25 Unknown Rx mL oral liquid (Guaifenesin AC) days #280 mL oseltamivir 75 mg capsule (Tamiflu) 75 mg PO BID 5 days #10 caps 01/06/25 Unknown Rx prednisone 20 mg tablet 40 mg (2 x 20 mg) PO DAILY 5 days 01/06/25 Unknown Rx #10 tabs Allergy/AdvReac Type Severity Reaction Status Date / Time bee venom protein (honey bee) Allergy Severe Anaphylaxis Verified 01/06/25 05:50 Social History Smoking Status: Current some day smoker tobacco type: cigarettes ROS ROS ED Constitutional Constitutional ED: Reports chills, fever(s) and subjective Eyes Eyes: Denies blurry vision or change in vision ENT ENT ED: Reports rhinorrhea and sore throat Cardiovascular Cardiovascular: Denies chest pain Respiratory/Chest Respiratory/Chest: Reports cough Gastrointestinal Gastrointestinal: Denies abdominal pain, diarrhea, nausea or vomiting Musculoskeletal Musculoskeletal: Reports myalgias Neurologic Neurologic: Denies headache(s) Allergic/Immunologic Allergic/Immunologic ED: Denies mouth swelling or tongue swelling EXAM Physical Exam Const Vital Signs: 01/06/25 05:47 01/06/25 07:37 Temperature 98.2 F 98.4 F Temperature Source Oral Pulse Rate 118 H 105 H Respiratory Rate 18 16 Blood Pressure 121/73 H 109/57 L Blood Pressure Mean 89 74 Pulse Ox 95 100 Oxygen Delivery Method Room Air Positive well nourished and well developed General Appearance ED: well developed; Negative for pallor HEENT HEENT Narrative: Bilateral TMs are retracted but show no secondary findings to suggest infection Nasal mucosa is hyperemic and boggy No tongue or lip swelling no oral lesions no airway edema or compromise There is cobblestoning noted in the posterior pharynx consistent with sinus drainage but no secondary findings to suggest infection Eyes PERRL and EOMs intact bilaterally General Eye ED: Negative for scleral icterus Neck supple and no JVD Neck Narrative: No nuchal rigidity or meningeal signs Chest Wall palpation of chest normal Chest Narrative: No bony deformity or crepitance noted Resp normal respiratory effort Resp Narrative: Breath sounds are diminished throughout with faint rhonchi noted in bilateral lower lobes however no nasal flaring retractions tachypnea or accessory muscle use Cardio regular rhythm Rate: tachycardic and other Other Details: Tachycardic rate with regular rhythm No murmurs rubs or gallops Radial and carotid pulses are equal and symmetric Extremity normal to inspection Extremity Narrative: No asymmetric edema no pitting edema negative Homans' sign bilaterally Neuro oriented x3, CN's II-XII intact bilaterally and no sensory deficits noted Sensorium / Orientation: alert Motor Exam: strength 5/5 throughout Psych mental status grossly normal Skin no rashes or lesions noted General Skin Exam: Negative for jaundice or pallor MDM MDM MDM Narrative Medical decision making narrative: Patient arrived to the ER tachycardic but otherwise with stable vitals and in no acute respiratory distress. Constellation of symptoms is concerning for pneumonia versus viral infection such as influenza RSV or COVID. As symptom profile is most consistent with viral infection a swab was obtained as well as chest x-ray. Patient was positive for influenza A which correlates with his history and exam. His x-ray did show hazy opacities concerning for developing pneumonia but as he is influenza positive this is most likely viral in nature and therefore do not feel there is need for further testing or antibiotics. However as he is only 48 hours into his illness and has x-ray changes with history of asthma I will start him on Tamiflu as well as steroid. But as he is not hypoxic or in respiratory distress or showing signs of sepsis there is no need for further intervention and he is otherwise safe for discharge History & Record Review Discussion w/independent historian: Patient Radiography Diagnostic Testing: Clinical Impression(s) from Imaging Studies Chest X-Ray 01/06/25 06:13 IMPRESSION: Finding may suggest developing pulmonary vascular congestion. Infectious process is also possibility. Follow-up until resolution is recommended.. Reading Location: [id number] Chest x-ray as interpreted by the emergency medicine physician reveals hazy opacities in bilateral lower lobes concerning for developing pneumonia Discharge Plan Triage Chief Complaint: Cold Sx ED Provider: Sae Ware Dx/Rx/DC Orders Clinical Impression: Influenza A, Asthma Instructions: ED Influenza (Adult) Prescriptions: New oseltamivir [Tamiflu] 75 mg capsule 75 mg PO BID 5 Days Qty: 10 0RF prednisone 20 mg tablet 40 mg PO DAILY 5 Days Qty: 10 0RF azelastine 137 mcg (0.1 %) spray,non-aerosol 2 spray intranasal BID Qty: 30 0RF Rx Instructions: administer into each nostril codeine-guaifenesin [Guaifenesin AC] 10-100 mg/5 mL liquid 10 ml PO 4X/DAY PRN (Reason: flu symptoms) 7 Days Qty: 280 0RF No Action albuterol sulfate [Ventolin HFA] 90 mcg/actuation HFA aerosol inhaler 1 - 2 puff inhalation Q4H PRN PRN (Reason: Wheezing) Qty: 1 0RF Stand Alone Forms: ED Work / School Excuse Primary Care Provider: Care Physician,No Primary Referrals: Jose Avelar MD [Med Staff - Active Staff] - Care Physician,No Primary [Primary Care Provider] - Activity Restrictions/Additional Instructions: You tested positive for influenza A. This is a viral infection which will need to run its course and will last anywhere from 5 to 10 days with the average being 7 days. Use the prescribed medication to help control your symptoms and return to the ER should you have any further concerns Print Language: Upper Sorbian Disposition Disposition: Home, Self Care Discharge Date/Time: 01/06/25 07:38
[2025-01-06 07:37] VITALS: BP 109/57; PULSE 105; RESP 16; TEMP 36.9; O2SAT 100
[2025-01-06] MEDS: Albuterol Sulfate 8 gm Inhaler (60 puffs) 2 PUFF INHALATION (07:37)
[2025-01-06] MEDS: Oseltamivir Phosphate 75 MG Capsule PO (07:37)
== END 2025-01-06 07:38 | disposition home or self-care (01) ==
PROVIDERS: Emergency Provider Emergency Medicine; Visit Provider Emergency Medicine
DX: J10.1 Influenza due to other identified influenza virus with other respiratory manifestations (principal); J45.909 Unspecified asthma, uncomplicated; Z79.899 Other long term (current) drug therapy; F17.210 Nicotine dependence, cigarettes, uncomplicated
CPT/HCPCS: 71046; 87631; 99282

== ENCOUNTER 2025-02-06 15:45 | Emergency (ER) | payer SELFPAY ==
[2025-02-06 15:45] VITALS: BP 128/84; PULSE 94; RESP 22; TEMP 36.6; O2SAT 100
--- NOTE | 2025-02-06 15:52 | EKG12_ITS ---
Test Reason : SOB Blood Pressure : */* mmHG Vent. Rate : 113 BPM Atrial Rate : 113 BPM P-R Int : 134 ms QRS Dur : 82 ms QT Int : 310 ms P-R-T Axes : 44 41 37 degrees QTcB Int : 425 ms Sinus tachycardia Cannot rule out Anterior infarct , age undetermined Abnormal ECG Confirmed by KP ALAN, TOY ([id number]), editorial clerk LORAINE JAVIER ([id number]) on 02/08/2025 6:01:38 AM Referred By: Norberto Card Confirmed By: TOY GOODRICH MD
--- NOTE | 2025-02-06 16:05 | RAD_ITS ---
PROCEDURE: CHEST PA AND LATERAL 02/06/2025 REASON FOR EXAM: Shortness of breath, wheezing, Asthma, sore throat and cough. TECHNIQUE: Frontal and lateral views of the chest. COMPARISON: Chest radiographs 01/06/2025 FINDINGS: Hardware: None. Heart: The heart size is normal. Mediastinum: The mediastinal contour is unremarkable. Lungs: The lungs are clear. Bones: The bones are unremarkable. RAD/Chest PA and Lateral IMPRESSION: NEGATIVE CHEST Reading Location: [facility]
--- NOTE | 2025-02-06 16:18 | EDS_ITS ---
HPI <REBECA Manuel - Last Filed: 02/06/25 20:36> History of Present Illness Chief Complaint: Shortness of Breath Narrative Narrative: Patient presenting due to shortness of breath that started around 3 PM this afternoon while at work. He reports that he developed wheezing and felt like his lungs were on fire with taking a deep breath. He has a history of asthma, he has had asthma exacerbations in the past and this feels similar to that. He ran out of his rescue inhaler. He had influenza A about a month ago but reports that his symptoms have pretty much resolved aside from nasal congestion, slight cough, and a sore throat. He denies fevers, chest pain, history of blood clots, recent surgeries/travel/immobilization. He does admit to smoking about a pack of cigarettes every 3 days, he also vapes daily. [facility] <REBECA Manuel - Last Filed: 02/06/25 20:36> [facility] Medical History Asthma Home Medications ?Medication ?Instructions ?Recorded ?Last Taken ?Type albuterol sulfate 90 mcg/actuation 1 - 2 puff inhalati on Q4H PRN PRN 11/07/23 Unknown Rx aerosol inhaler (Ventolin HFA) Wheezing #1 inh azelastine 137 mcg (0.1 %) nasal 2 spray intranasal BI D #30 mL 01/06/25 Unknown Rx spray codeine 10 mg-guaifenesin 100 mg/5 10 ml PO 4X/DAY PRN flu symptoms 7 01/06/25 Unknown Rx mL oral liquid (Guaifenesin AC) days #280 mL oseltamivir 75 mg capsule (Tamiflu) 75 mg PO BID 5 day s #10 caps 01/06/25 Unknown Rx prednisone 20 mg tablet 40 mg (2 x 20 mg) PO DAILY 5 days 01/06/25 Unknown Rx #10 tabs prednisone 20 mg tablet 40 mg (2 x 20 mg) PO DAILY 4 days 02/06/25 Unknown Rx #8 tabs Allergy/AdvReac Type Severity Reaction Status Date / Time bee venom protein (honey bee) Allergy Severe Anaphylaxis Verified 02/06/25 15:48 Social History Smoking Status: Current some day smoker tobacco type: cigarettes ROS <REBECA Manuel - Last Filed: 02/06/25 20:36> ROS ED Constitutional Constitutional ED: Denies chills or fever(s) Cardiovascular Cardiovascular: Denies chest pain Respiratory/Chest Respiratory/Chest: Reports cough, dyspnea and wheezing Gastrointestinal Gastrointestinal: Denies abdominal pain, nausea or vomiting Musculoskeletal Musculoskeletal: Denies arthralgias or myalgias Integumentary Denies rash Neurologic Neurologic: Denies weakness Psychiatric Psychiatric: Reports anxiety; Denies suicidal ideation EXAM <REBECA Manuel - Last Filed: 02/06/25 20:36> Physical Exam Const Vital Signs: 02/06/25 15:45 02/06/25 15:45 02/06/25 16:27 Temperature 97.9 F Temperature Source Temporal Pulse Rate 94 119 H Respiratory Rate 22 H 17 Respiratory Effort Short of Breath Respiratory Depth Normal Respiratory Pattern Normal Normal Blood Pressure 128/84 H Blood Pressure Mean 98 Pulse Ox 100 Oxygen Delivery Method Room Air Room Air 02/06/25 16:45 Temperature Temperature Source Pulse Rate 124 H Respiratory Rate 22 H Respiratory Effort Respiratory Depth Respiratory Pattern Blood Pressure 127/110 H Blood Pressure Mean 115 Pulse Ox 95 Oxygen Delivery Method Positive well nourished, well developed and no apparent distress General Appearance ED: well developed HEENT Reports normocephalic and head/scalp atraumatic HEENT Narrative: Posterior pharynx clear, no tonsillar exudate, uvula midline, Mouth ED: Yes moist mucous membranes normal Eyes PERRL and EOMs intact bilaterally Neck full ROM and supple Chest Wall inspection of chest normal Resp normal respiratory effort Resp Narrative: Faint expiratory wheezes to the right lung castillo Cardio regular rhythm Rate: tachycardic GI soft to palpation, non-tender, non-distended and no masses Back/Spine normal ROM and normal to inspection Extremity normal to inspection and full ROM Neuro oriented x3, CN's II-XII intact bilaterally, moves all extremities, no focal motor deficits and no sensory deficits noted Sensorium / Orientation: awake and alert Psych mental status grossly normal and thought process normal Skin no rashes or lesions noted and no wounds <Norberto Card MD - Last Filed: 02/06/25 23:45> Physical Exam Const Vital Signs: 02/06/25 15:45 02/06/25 15:45 02/06/25 16:27 Temperature 97.9 F Temperature Source Temporal Pulse Rate 94 119 H Respiratory Rate 22 H 17 Respiratory Effort Short of Breath Respiratory Depth Normal Respiratory Pattern Normal Normal Blood Pressure 128/84 H Blood Pressure Mean 98 Pulse Ox 100 Oxygen Delivery Method Room Air Room Air 02/06/25 16:45 Temperature Temperature Source Pulse Rate 124 H Respiratory Rate 22 H Respiratory Effort Respiratory Depth Respiratory Pattern Blood Pressure 127/110 H Blood Pressure Mean 115 Pulse Ox 95 Oxygen Delivery Method [facility] <REBECA Manuel - Last Filed: 02/06/25 20:36> [facility] Narrative Medical decision making narrative: Patient presenting due to concerns for an asthma exacerbation. At 3 PM at work he started to feel wheezy and felt like his lungs were, on fire with breathing. He does report some improvement of his symptoms. He does have faint wheezing to the right lung castillo on exam. Lower suspicion for PE. He denies having any chest pain. Exam is consistent with an asthma exacerbation. He was here about a month ago for influenza A. Chest x-ray obtained today to assess for infiltrate given recent influenza infection and is negative. Patient given prednisone and albuterol DuoNeb breathing treatments, he did become slightly tachycardic after the breathing treatments. Also, He does admit to feeling anxious and states that he does not like the IV being in his arm and the blood pressure cuff hurts. I think that his anxiety is contributing to his tachycardia. However, he does report improvement of his respiratory symptoms. I will treat him with a course of prednisone for his asthma exacerbation as well as give him an albuterol inhaler. I did give him a PCP referral and recommended he follow-up within the next week. Return instructions discussed and patient discharged home in stable condition. Radiography X-Ray: Read by ED Physician Diagnostic Testing: Clinical Impression(s) from Imaging Studies Chest X-Ray 02/06/25 16:05 IMPRESSION: NEGATIVE CHEST Reading Location: [facility] EKG Initial EKG: Comments: 113 bpm, sinus tachycardia, no ST elevation, interpreted by attending ED physician <Norberto Card MD - Last Filed: 02/06/25 23:45> [facility] Radiography Diagnostic Testing: Clinical Impression(s) from Imaging Studies Chest X-Ray 02/06/25 16:05 IMPRESSION: NEGATIVE CHEST Reading Location: [facility] Treatment and Re-Evaluation :: Dr. Card: I have personally performed a face to face assessment of the patient and have reviewed the SHANIKA Note. I performed a substantive portion of the visit including all aspects of the following. My juan findings include: History is asthma exacerbation at work, out of inhaler. Exam is afebrile. Vital signs noted. Nontoxic-appearing. Initial cardiovascular examination regular rate and rhythm. Positive expiratory wheezing. Abdomen soft nontender. Neurological examination nonfocal and nonlateralizing. Medical Decision Making: Patient had influenza few weeks ago, will rule out pneumonia, chest x-ray obtained. Chest x-ray interpreted by myself independently shows no pneumothorax or consolidation. I reviewed the radiology report which confirms my independent interpretation. After aerosolized treatment, patient mildly anxious and tachycardic. I have very low suspicion for pulmonary embolism. I feel he can be discharged to follow-up. He was written for prednisone burst and given an albuterol inhaler here. Follow-up primary care. Disposition is discharged home in stable condition. Other additions or changes: [None] Discharge Plan Triage Chief Complaint: Shortness of Breath ED Midlevel Provider: Lara Decker ED Provider: Norberto Card Dx/Rx/DC Orders Clinical Impression: Asthma exacerbation, URI (upper respiratory infection) Instructions: ED Asthma, Acute (Adult), ED URI, Viral, No Abx (Adult) Prescriptions: New prednisone 20 mg tablet 40 mg PO DAILY 4 Days Qty: 8 0RF No Action albuterol sulfate [Ventolin HFA] 90 mcg/actuation HFA aerosol inhaler 1 - 2 puff inhalation Q4H PRN PRN (Reason: Wheezing) Qty: 1 0RF oseltamivir [Tamiflu] 75 mg capsule 75 mg PO BID 5 Days Qty: 10 0RF prednisone 20 mg tablet 40 mg PO DAILY 5 Days Qty: 10 0RF azelastine 137 mcg (0.1 %) spray,non-aerosol 2 spray intranasal BID Qty: 30 0RF Rx Instructions: administer into each nostril codeine-guaifenesin [Guaifenesin AC] 10-100 mg/5 mL liquid 10 ml PO 4X/DAY PRN (Reason: flu symptoms) 7 Days Qty: 280 0RF Stand Alone Forms: ED Work / School Excuse Primary Care Provider: Care Physician,No Primary Referrals: Care Physician,No Primary [Primary Care Provider] - Activity Restrictions/Additional Instructions: [phone]. Return for any other concerns. Print Language: Greek Disposition Disposition: Home, Self Care Discharge Date/Time: 02/06/25 17:45
[2025-02-06] MEDS: predniSONE 20 MG Tablet 40 MG PO (16:19)
[2025-02-06 16:27] VITALS: PULSE 119; RESP 17
[2025-02-06] MEDS: Ipratropium/Albuterol Sulfate 3 ML AMPUL.NEB INHALATION (16:27)
[2025-02-06] MEDS: Albuterol 2.5 MG/3 ML VIAL.NEB. INHALATION ×2 (16:27)
[2025-02-06 16:45] VITALS: BP 127/110; PULSE 124; RESP 22; O2SAT 95
[2025-02-06 17:33] VITALS: O2SAT 98
[2025-02-06] MEDS: Albuterol Sulfate 8 gm Inhaler (60 puffs) 2 PUFF INHALATION (17:44)
== END 2025-02-06 17:45 | disposition home or self-care (01) ==
PROVIDERS: Emergency Provider Emergency Medicine; Referring Provider Emergency Medicine; Visit Provider Emergency Medicine
DX: J45.901 Unspecified asthma with (acute) exacerbation (principal); J06.9 Acute upper respiratory infection, unspecified; Z79.899 Other long term (current) drug therapy; F17.210 Nicotine dependence, cigarettes, uncomplicated; F17.290 Nicotine dependence, other tobacco product, uncomplicated
CPT/HCPCS: 71046; 93005; 94640; 99282

== ENCOUNTER 2025-02-23 07:39 | Emergency (ER) | payer MEDICAID, SELFPAY ==
[2025-02-23 07:39] VITALS: BP 142/89; PULSE 98; RESP 22; TEMP 36.8; O2SAT 96; BMI 38.4
--- NOTE | 2025-02-23 07:45 | EX.ED.DYSGE1 ---
HPI History of Present Illness Chief Complaint: General Illness Informant: patient Onset/Context/Timing Onset: Weeks (3) Context: Gradual Onset Timing: Waxes and wanes Quality: Fatigued, lightheaded Location: Generalized Worsened by: Nothing Relieved by: Nothing Narrative Narrative: Patient presents with fatigue, dizziness, and not feeling well for the past 3 weeks. Patient states that he started to feel better last week but then it became worse again this week. Patient states he feels tired. Patient states he feels lightheaded. Patient states nothing makes his symptoms worse and nothing makes it better. Patient admits to a sore throat and rhinorrhea. Patient admits to some slight shortness of breath. Patient denies any fevers or chills. Patient denies any cough. PFSH [facility] Medical History Asthma Home Medications ?Medication ?Instructions ?Recorded ?Last Taken ?Type albuterol sulfate 90 mcg/actuation 1 - 2 puff inhalation Q4H PRN PRN 11/07/23 Unknown Rx aerosol inhaler (Ventolin HFA) Wheezing #1 inh Allergy/AdvReac Type Severity Reaction Status Date / Time bee venom protein (honey bee) Allergy Severe Anaphylaxis Verified 02/23/25 07:39 Surgical History no surgical history no surgical history Social History Smoking Status: Current every day smoker tobacco type: cigarettes ROS ROS ED Constitutional Constitutional ED: Denies chills or fever(s) Eyes Eyes: Denies blurry vision or change in vision ENT ENT ED: Reports rhinorrhea and sore throat Cardiovascular Cardiovascular: Denies chest pain or palpitations Respiratory/Chest Respiratory/Chest: Reports dyspnea; Denies cough Gastrointestinal Gastrointestinal: Denies nausea or vomiting Genitourinary Genitourinary ED: Denies dysuria or hematuria Musculoskeletal Musculoskeletal: Reports back pain; Denies neck pain Integumentary Denies abscess or rash Neurologic Neurologic: Denies headache(s) or weakness Allergic/Immunologic Allergic/Immunologic ED: Denies mouth swelling or urticaria EXAM Physical Exam Const Vital Signs: 02/23/25 07:39 02/23/25 07:50 Temperature 98.2 F Temperature Source Oral Pulse Rate 98 Respiratory Rate 22 H Respiratory Pattern Normal Blood Pressure 142/89 H Blood Pressure Mean 106 Pulse Ox 96 Oxygen Delivery Method Room Air Positive well nourished and well developed Constitutional Narrative: BMI is 38.4. General Appearance ED: well developed and NAD HEENT Reports moist mucous membranes Neck no lymphadenopathy, supple and no JVD Resp normal respiratory effort and clear to auscultation bilaterally Cardio regular rate and regular rhythm GI non-tender and non-distended Palpation: soft Neuro oriented x3, CN's II-XII intact bilaterally and no sensory deficits noted Sensorium / Orientation: alert Motor Exam: strength 5/5 throughout Psych mental status grossly normal MDM MDM MDM Narrative Medical decision making narrative: Differential diagnosis includes pharyngitis, mononucleosis, viral illness, pneumonia, dehydration, and electrolyte abnormality. CBC will be obtained to assess for leukocytosis and anemia. Basic metabolic profile will be obtained to assess for electrolyte abnormality or renal function. Monotest will be obtained to assess for mononucleosis. COVID-19, influenza, and RSV PCR will be obtained to assess for viral illness. Rapid strep will be obtained to assess for strep pharyngitis. History & Record Review Additional record(s) reviewed:: Prior ED visit and Prior labs Lab Data Attestation: I reviewed the patient's lab results. Lab results narrative: CBC was reviewed. There is a mild leukocytosis of 12.2. The remainder is within normal limits. Basic metabolic profile was reviewed. Creatinine was slightly elevated at 1.23. Glucose was slightly elevated at 114. The remainder is within normal limits. Monotest was reviewed and was negative. Rapid strep was reviewed and was negative. COVID-19 PCR was reviewed and was negative. Influenza PCR was reviewed and was negative for influenza A and influenza B. RSV PCR was reviewed and was negative. Labs: Laboratory Results - last 24 hr 02/23/25 08:10 WBC 12.2 H RBC 5.13 Hgb 15.4 Hct 46.0 MCV 89.7 MCH 30.0 MCHC 33.5 RDW Std Deviation 43.6 RDW Coeff of Angeli 13.2 Plt Count 363 MPV 9.6 Immature Gran % (Auto) 0.300 Neut % (Auto) 59.2 Lymph % (Auto) 19.1 [place] % (Auto) 12.5 H Eos % (Auto) 7.8 H Baso % (Auto) 1.1 H Absolute Neuts (auto) 7.2 Absolute Lymphs (auto) 2.34 Nucleated RBC % 0 Differential Comment SCANNED Sodium 143 Potassium 4.2 Chloride 109 H Carbon Dioxide 23.0 Anion Gap 11 BUN 11 Creatinine 1.23 H Estim Creat Clear Calc 119.30 Est GFR (MDRD) Non-Af 82 BUN/Creatinine Ratio 8.9 L Glucose 114 H Calcium 9.0 Monoscreen Negative Radiography Chest X-Ray - ED: 2 View, Read by ED Physician, Read by Radiologist and No Acute Disease Diagnostic Testing: Clinical Impression(s) from Imaging Studies Chest X-Ray 02/23/25 08:25 IMPRESSION: No acute cardiopulmonary process. Reading Location: [facility] PA and lateral chest x-ray was obtained. There are 2 views. On my independent interpretation, lung castillo are clear. There is normal cardiac silhouette. Bony thorax is normal. There is no acute process noted. Radiologist also interpreted the x-ray and agrees. Treatment and Re-Evaluation :: Smoking cessation was discussed. Patient was advised of his findings. Patient was instructed to drink plenty of fluids. Patient was instructed take Tylenol or ibuprofen as needed for any pain or fevers. Patient was instructed to follow-up with his primary care physician in 5 to 7 days. Patient understood and was agreeable with the plan. All questions were answered. Discharge Plan Triage Chief Complaint: General Illness ED Provider: Maurizio Otoole Dx/Rx/DC Orders Clinical Impression: Viral upper respiratory infection, Tobacco use disorder Instructions: ED URI, Viral, No Abx (Adult) Prescriptions: No Action albuterol sulfate [Ventolin HFA] 90 mcg/actuation HFA aerosol inhaler 1 - 2 puff inhalation Q4H PRN PRN (Reason: Wheezing) Qty: 1 0RF Stand Alone Forms: ED Work / School Excuse Primary Care Provider: Care Physician,No Primary Referrals: Moira Alcantar MD [Med Staff - Catalogue Maker] - 5-7 Days Care Physician,No Primary [Primary Care Provider] - Print Language: Serbian Disposition Disposition: Home, Self Care
[2025-02-23 08:24] LABS: Absolute Lymphocyte Count 2.34 X10^3/uL (0.83-4.51); Absolute Neutrophil Count 7.2 X10^3/uL (2.0-7.7); Basophil# 0.13 X10^3/uL; Basophil% 1.1 % (0-1); Eosinophil# 0.95 X10^3/uL; Eosinophils% 7.8 % (0-5); Hemoglobin 15.4 g/dL (13.0-16.5); Lymphocyte # 2.34 X10^3/ul (0.83-4.51); Lymphocyte % 19.1 % (19-41); Mean Corp Hgb Conc 33.5 g/dL (32-36); Mean Corpuscular Volume 89.7 fL (80-94); Mean Platelet Vol. 9.6 fl (6.2-12.0); Monocyte# 1.53 X10^3/uL; Monocyte% 12.5 % (0-10); NRBC Flagged by Analyzer 0 % (0-5); Neutrophil # 7.23 X10^3/uL (2.7-7.7); Neutrophil % 59.2 % (47-70); POSITIVE DIFFERENTIAL YES; Platelet Count 363 K/mm3 (150-450); RBC Distribution Width CV 13.2 % (11.6-14.6); RBC Distribution Width SD 43.6 fl (35.1-43.9); Red Blood Count 5.13 M/mm3 (4.6-6.2); White Blood Count 12.2 K/mm3 (4.4-11.0)
[2025-02-23 08:25] LABS: Differential Indicated SCAN CRITERIA MET
--- NOTE | 2025-02-23 08:25 | RAD_ITS ---
EXAM: XR Chest, 2 Views CLINICAL INDICATION: FATIGUE TECHNIQUE: Frontal and lateral views of the chest. COMPARISON: No relevant prior studies available. FINDINGS: LUNGS AND PLEURAL SPACES: Unremarkable. No consolidation. No pneumothorax. HEART: Unremarkable. No cardiomegaly. MEDIASTINUM: Unremarkable. Normal mediastinal contour. BONES/JOINTS: Unremarkable. No acute fracture. RAD/Chest PA and Lateral IMPRESSION: No acute cardiopulmonary process. Reading Location: [facility]
[2025-02-23 09:01] LABS: Differential Comment SCANNED
[2025-02-23 09:05] LABS: Internal QC Validated? YES +Cl - CLEAR BKGD; Monotest Negative (Negative); Record Kit Lot#, Mono 13241430
[2025-02-23 09:13] LABS: Anion Gap 11 (5-15); BUN 11 mg/dL (4-19); BUN/Creat Ratio 8.9 RATIO (10-20); Chloride 109 mmol/L (98-108); Creatinine, Serum 1.23 mg/dL (0.70-1.20); EST Glomerular Filtration Rate 82 (>60); Glucose 114 mg/dL (70-99); Potassium 4.2 mmol/L (3.3-5.1); Sodium Level 143 mmol/L (133-145)
[2025-02-23 09:39] VITALS: BP 134/78; PULSE 64; RESP 18; TEMP 37.1; O2SAT 99
== END 2025-02-23 09:52 | disposition home or self-care (01) ==
PROVIDERS: Emergency Provider Emergency Medicine; Visit Provider Emergency Medicine
DX: J06.9 Acute upper respiratory infection, unspecified (principal); F17.210 Nicotine dependence, cigarettes, uncomplicated; J45.909 Unspecified asthma, uncomplicated
CPT/HCPCS: 71046; 80048; 85025; 86308; 87631; 87651; 99283; A4216

== ENCOUNTER 2025-02-27 17:16 | Emergency (ER) | payer MEDICAID, SELFPAY ==
[2025-02-27 17:16] VITALS: PULSE 94; RESP 16; TEMP 36.6; O2SAT 97; BMI 39.1
--- NOTE | 2025-02-27 17:33 | EX.ED.DYSGE1 ---
HPI History of Present Illness Chief Complaint: Abd Pain Detail of Chief Complaint: Severe midline inferior abdominal pain with she Informant: patient Onset/Context/Timing Onset: Hours (1 hour prior to arrival while at work) Context: Sudden Onset Timing: Continuous Quality: Sharp Location: Low midline abdominal Current Severity: Moderate Maximum Severity: 10/10 Worsened by: Nothing Relieved by: Nothing Associated Symptoms Associated Symptoms: Nausea and syncope Narrative Narrative: Patient is 29-year-old male. He presents from work because of severe lower sharp midline infraumbilical pain that started at 1630 while at work. He got dizzy. He states after 15 minutes he passed out. Does report nausea. He did have a bowel movement hour or so ago. He states his stool was formed. There is no blood or mucus. He denies dysuria, frequency, urgency or hematuria. Denies history of renal ureterolithiasis. He denies trauma. There is no radiation of the pain. Denies pain in the right or left inguinal area. He was seen on February 23 and diagnosed with upper respiratory infection. 2 weeks prior to that he was diagnosed with exacerbation of his asthma. In the month prior he was seen for upper respiratory/asthma as well. Prior similar symptoms: No Recent Illness/Hospitalization: Yes (Multiple ER visit for viral type illness.) [facility] Medical History Asthma Home Medications ?Medication ?Instructions ?Recorded ?Last Taken ?Type albuterol sulfate 90 mcg/actuation 1 - 2 puff inhalation Q4H PRN PRN 11/07/23 Unknown Rx aerosol inhaler (Ventolin HFA) Wheezing #1 inh Allergy/AdvReac Type Severity Reaction Status Date / Time bee venom protein (honey bee) Allergy Severe Anaphylaxis Verified 02/27/25 17:16 Social History Smoking Status: Current every day smoker tobacco type: cigarettes ROS ROS ED Constitutional Constitutional ED: Denies chills, fever(s), subjective, sweats or weight loss Eyes Eyes: Denies blurry vision or change in vision ENT ENT ED: Denies ear pain, rhinorrhea or sore throat Cardiovascular Cardiovascular: Denies chest pain, orthopnea, palpitations, paroxysmal nocturnal dyspnea or racing heartbeat Respiratory/Chest Respiratory/Chest: Reports cough; Denies dyspnea, dyspnea on exertion, orthopnea, paroxysmal nocturnal dyspnea or sputum Gastrointestinal Gastrointestinal: Reports abdominal pain and nausea; Denies constipation, diarrhea, melena or vomiting Genitourinary Genitourinary ED: Denies dysuria, hematuria or urinary frequency Musculoskeletal Musculoskeletal: Denies arthralgias, back pain, myalgias or neck pain Integumentary Denies abscess or rash Neurologic Neurologic: Denies headache(s) or paresthesias Endocrine Endocrinology: Denies cold intolerance or heat intolerance Hematologic/Lymphatic Hematologic/Lymphatic: Denies systems reviewed and no addt'l complaints, except as documented EXAM Physical Exam Const Vital Signs: 02/27/25 17:16 02/27/25 19:16 Temperature 97.9 F Temperature Source Oral Pulse Rate 94 92 Respiratory Rate 16 16 Blood Pressure 107/58 L Blood Pressure Mean 74 Pulse Ox 97 95 Oxygen Delivery Method Room Air Room Air Positive well nourished and well developed Constitutional Narrative: Patient has a nonproductive cough. He appears in some distress. General Appearance ED: well developed; Negative for cyanotic or diaphoretic HEENT Reports moist mucous membranes HEENT Narrative: Patient has poor dentition. Posterior pharynx is normal. Nares is positive for drainage bilaterally. Ears are normal. Eyes EOMs intact bilaterally General Eye ED: Negative for pale conjunctiva or scleral icterus Neck no lymphadenopathy, supple and no JVD Chest Wall inspection of chest normal and palpation of chest normal Resp normal respiratory effort and clear to auscultation bilaterally Cardio regular rate, regular rhythm, S1 normal heart sound, S2 normal heart sound and no murmurs GI non-distended and no masses; Negative for hepatosplenomegaly GI Narrative: There is no tenderness with distraction. Otherwise he grimaces with when I pushed in the lower abdomen near the midline. There is no inguinal lymphadenopathy. There is no inguinal mass Auscultation: hyperactive bowel sounds Palpation: soft MDM MDM Lab Data Attestation: I reviewed the patient's lab results. Lab results narrative: White count is elevated. It is higher than it was on February 23. There is no shift. Urinalysis is unremarkable. Labs: Laboratory Results - last 24 hr 02/27/25 02/27/25 17:49 18:20 WBC 14.8 H RBC 5.13 Hgb 15.5 Hct 46.0 MCV 89.7 MCH 30.2 MCHC 33.7 RDW Std Deviation 42.2 RDW Coeff of Angeli 12.7 Plt Count 357 MPV 9.9 Immature Gran % (Auto) 0.300 Neut % (Auto) 63.2 Lymph % (Auto) 27.8 Bent % (Auto) 5.8 Eos % (Auto) 2.4 Baso % (Auto) 0.5 Absolute Neuts (auto) 9.3 H Absolute Lymphs (auto) 4.10 Nucleated RBC % 0 Urine Color Yellow Urine Clarity Sl. Cloudy Urine pH 7.0 Ur Specific [place] 1.010 Urine Protein 15 H Urine Glucose (UA) Normal Urine Ketones Negative Urine Occult Blood Negative Urine Nitrite Negative Urine Bilirubin Negative Urine Urobilinogen 1 H Ur Leukocyte Esterase Negative Urine RBC 0 SEEN Urine WBC 0 SEEN Ur Squamous Epith Cells 0 SEEN Amorphous Sediment 1+ Urine Bacteria 0 SEEN Urine Mucus 0 SEEN Radiography Diagnostic Testing: Clinical Impression(s) from Imaging Studies Abdomen/Pelvis CT 02/27/25 19:18 IMPRESSION: NO ACUTE FINDINGS AT THE ABDOMEN OR PELVIS ON CONTRAST-ENHANCED CT. Reading Location: [facility] CT of the abdomen and pelvis with and family reviewed by me at 1949. There is no abdomen of the liver, gallbladder or spleen. Kidneys appear normal. There is no evidence of appendicitis per my review. Awaiting formal read by radiologist. Treatment and Re-Evaluation :: Patient nausea improved markedly his abdominal pain decreased with the Bentyl. 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 With the elevated white count and persistent tenderness will obtain CT to evaluate for appendicitis. Comments:: Patient was informed the cause of his pain is unknown. Patient had a vasovagal syncopal episode. Leukocytosis is probably due to the fact that he has a upper respiratory tract infection. Discharge Plan Triage Chief Complaint: Abd Pain Other Complaint: Dizziness ED Provider: Wallace Pulido Dx/Rx/DC Orders Clinical Impression: Abdominal pain of unknown cause, Leukocytosis, Syncope and collapse, Anxiousness Instructions: ED Fainting, Vagal Reaction, ED Abdominal Pain Unkn Cause Male... Prescriptions: No Action albuterol sulfate [Ventolin HFA] 90 mcg/actuation HFA aerosol inhaler 1 - 2 puff inhalation Q4H PRN PRN (Reason: Wheezing) Qty: 1 0RF Primary Care Provider: Care Physician,No Primary Referrals: Roula Marino MD [Med Staff - Food Safety Manager] - 1 Week if not improving Care Physician,No Primary [Primary Care Provider] - Activity Restrictions/Additional Instructions: 1. You were referred to Dr. Marino since you do not have a primary care physician. Print Language: Chinese Disposition Disposition: Home, Self Care
[2025-02-27] MEDS: Ondansetron 4 MG/2 ML Vial IV (17:49)
[2025-02-27] MEDS: Dicyclomine 10 MG Capsule 20 MG PO (17:49)
[2025-02-27 17:59] LABS: Absolute Neutrophil Count 9.3 X10^3/uL (2.0-7.7); Basophil# 0.08 X10^3/uL; Basophil% 0.5 % (0-1); Eosinophil# 0.35 X10^3/uL; Eosinophils% 2.4 % (0-5); Hemoglobin 15.5 g/dL (13.0-16.5); Lymphocyte % 27.8 % (19-41); Mean Corp Hgb Conc 33.7 g/dL (32-36); Mean Corpuscular Hgb 30.2 pg (27.0-32.0); Mean Corpuscular Volume 89.7 fL (80-94); Mean Platelet Vol. 9.9 fl (6.2-12.0); Monocyte# 0.85 X10^3/uL; Monocyte% 5.8 % (0-10); NRBC Flagged by Analyzer 0 % (0-5); Neutrophil # 9.34 X10^3/uL (2.7-7.7); Neutrophil % 63.2 % (47-70); Platelet Count 357 K/mm3 (150-450); RBC Distribution Width CV 12.7 % (11.6-14.6); RBC Distribution Width SD 42.2 fl (35.1-43.9); Red Blood Count 5.13 M/mm3 (4.6-6.2); White Blood Count 14.8 K/mm3 (4.4-11.0)
[2025-02-27 18:26] LABS: Bacteria 0 SEEN /hpf (None Seen); Mucous, Urine 0 SEEN /hpf (<or=2+); Red Blood Cells-Urine 0 SEEN /hpf (0-5); Squamous Epithelial Cells - UA 0 SEEN /hpf (0-5); White Blood Cells 0 SEEN /hpf (0-5)
[2025-02-27 18:49] LABS: Color, Urine Yellow (Yellow); Glucose, Dipstick Normal (Normal); Ketone-Dipstick Negative (Negative); Leukocyte Esterase-Dipstick Negative /ul (Negative); Nitrite-Dipstick Negative (Negative); Occult Blood-Urine Negative /ul (Negative); Protein-Dipstick 15 mg/dl (Negative); Urine Bilirubin Dipstick Negative (Negative); Urine Clarity Sl. Cloudy (Clear); Urine Urobilinogen 1 mg/dl (Normal)
[2025-02-27 19:01] LABS: Amorphous Sediment 1+
[2025-02-27 19:16] VITALS: BP 107/58; PULSE 92; RESP 16; O2SAT 95
--- NOTE | 2025-02-27 19:18 | CT_ITS ---
PROCEDURE: ABDOMEN/PELVIS W IV CONT ONLY 02/27/2025 REASON FOR EXAM: LOWER ABDOMINAL PAIN WITH NAUSEA AND LEUKOCYTOSIS TECHNIQUE: Abdomen and pelvis CT with intravenous contrast. Coronal and Sagittal reconstruction series were provided. PATIENT PREPARATION: Per protocol ORAL CONTRAST TYPE: None. AMOUNT: mL One or more dose reduction techniques were used (e.g., Automated exposure control, adjustment of the mA and/or kV according to patient size, use of iterative reconstruction technique. FINDINGS: Lung bases: Lung bases are clear. Liver: Normal size. No mass. Gallbladder: Contracted gallbladder. Spleen: Normal size. Pancreas: Normal size without evidence of mass surrounding inflammation or ductal dilation. Adrenals: Unremarkable. Kidneys: Normal renal sizes. No hydronephrosis. Bladder: Unremarkable. Reproductive Organs: Unremarkable. Bowel: No bowel obstruction. Appendix: Unremarkable. Lymph nodes: Unremarkable. Vasculature: The abdominal aorta and IVC are normal. Peritoneum / Retroperitoneum: Tiny umbilical hernia containing fat. Bones: Unremarkable. CT/Abdomen/Pelvis W IV Cont ONLY IMPRESSION: NO ACUTE FINDINGS AT THE ABDOMEN OR PELVIS ON CONTRAST-ENHANCED CT. Reading Location: [id number]
== END 2025-02-27 20:38 | disposition home or self-care (01) ==
PROVIDERS: Emergency Provider Emergency Medicine; Visit Provider Emergency Medicine
DX: R10.9 Unspecified abdominal pain (principal); R11.0 Nausea; R55 Syncope and collapse; J45.909 Unspecified asthma, uncomplicated; F17.210 Nicotine dependence, cigarettes, uncomplicated
CPT/HCPCS: 74177; 81001; 85025; 96374; 99285; Q9967; A4216; J2405

== ENCOUNTER 2025-04-22 10:48 | Emergency (ER) | payer MEDICAID, SELFPAY ==
[2025-04-22 10:48] VITALS: BP 143/87; PULSE 112; RESP 18; TEMP 36.8; O2SAT 96; BMI 39.2
--- NOTE | 2025-04-22 11:04 | ED.VIS.DENTA ---
HPI History of Present Illness Chief Complaint: Dental Informant: patient Narrative Narrative: 30-year-old male presenting for several complaints. Mainly for dental pain, he states it has been hurting in his right maxillary dentition for the past 4 to 5 days, and he woke up today and that area of his face is swollen externally. He denies any bleeding or discharge in his mouth. No fevers or chills. Pain radiates back to his right ear but his hearing is normal. Also for the past day or 2 he has had bilateral eye itching, redness, and they feel dry. States he thinks he may be allergic to something. Affected both eyes at the same time. Denies any discharge from his eyes. No recent URI. No chemical exposure that he knows of. States he has not tried anything other than an oral Claritin. Additionally he states his left wrist has been hurting him since yesterday since he tried on some longsleeve shirts that were tight on his wrist. He states now it is hard to move his fingers because of pain. He states he had some tingling in his fingers earlier, he thinks all of them, but it is gone now. Denies any injury or fall involving this area and denies pain elsewhere in his joints. [facility] Medical History Asthma Home Medications ?Medication ?Instructions ?Recorded ?Last Taken ?Type albuterol sulfate 90 mcg/actuation 1 - 2 puff inhalation Q4H PRN PRN 11/07/23 Unknown Rx aerosol inhaler (Ventolin HFA) Wheezing #1 inh amoxicillin 500 mg tablet 500 mg PO TID #30 tabs 04/22/25 Unknown Rx metronidazole 500 mg tablet 500 mg PO Q8H #30 tabs 04/22/25 Unknown Rx naproxen 500 mg tablet 500 mg PO BID PRN #14 tabs 04/22/25 Unknown Rx Allergy/AdvReac Type Severity Reaction Status Date / Time bee venom protein (honey bee) Allergy Severe Anaphylaxis Verified 04/22/25 10:51 Social History household members: significant other Smoking Status: Current every day smoker tobacco type: cigarettes ROS ROS ED Constitutional Constitutional ED: Denies chills or fever(s) Eyes Eyes: Reports dry eyes, erythema and itchy eyes; Denies change in vision, discharge from eye(s), double vision or tearing ENT ENT ED: Reports dental pain and facial pain; Denies discharge from eye(s), ear pain, rhinorrhea, sinus pain, sore throat or throat swelling Cardiovascular Cardiovascular: Denies chest pain or palpitations Respiratory/Chest Respiratory/Chest: Denies cough or dyspnea Musculoskeletal Musculoskeletal: Reports as per HPI and extremity pain; Denies back pain or neck pain Integumentary Denies abscess or rash Neurologic Neurologic: Denies headache(s), paresthesias or weakness EXAM Physical Exam Const Vital Signs: 04/22/25 10:48 Temperature 98.2 F Temperature Source Oral Pulse Rate 112 H Respiratory Rate 18 Blood Pressure 143/87 H Blood Pressure Mean 105 Pulse Ox 96 Oxygen Delivery Method Room Air Positive well nourished and well developed General Appearance ED: well developed and NAD HEENT HEENT Narrative: External right soft tissue maxilla swelling without palpable collection or fluctuance or overlying erythema/cellulitis at the skin. Intraorally, he has diffuse dental decay which is worse anteriorly than it is in the molars. There is some swelling and hyperemia of the gingiva in these areas as well as tenderness superiorly in the area where the external maxillary swelling is there is no intraoral mucosal pointing to suggest drainable collection. There is no bleeding. There is no evidence of necrosis. No other mucosal lesions or tongue elevation or stridor. No trismus. Face and Sinus: sinuses nontender Throat: posterior oropharynx normal Eyes PERRL and EOMs intact bilaterally Eyes Narrative: Diffuse bilateral conjunctival injection without chemosis or purulent discharge. Neck no lymphadenopathy and supple Resp normal respiratory effort Extremity Extremity Narrative: Left wrist: Normal inspection. There is diffuse radial side of the wrist tenderness including at the ECR specifically which is tender. He has full range of motion of the wrist without apparent limitation. He has full range of motion of the fingers throughout the hand although tendon function is intact. He has a negative Tinel's at the median tunnel volar aspect. He has normal motor, sensory function of median, ulnar, radial nerves including AIN PIN branches. There is negative Tinel's at the ulnar tunnel and he has no tenderness at either epicondyle. Neuro oriented x3 and CN's II-XII intact bilaterally Sensorium / Orientation: alert Gait (Neuro): normal gait Psych mental status grossly normal and thought process normal Skin no rashes or lesions noted and no wounds MDM MDM MDM Narrative Medical decision making narrative: Patient has an early dental abscess he probably has gingivitis 2 although nothing here to suggest ANUG. I am putting him on combination amoxicillin and Flagyl to try to cover for that he states he has made an appointment with a dentist which I also recommend. With regards to his wrist and give him some anti-inflammatories as well as a prescription, he already has a soft brace on, this is more consistent with tendinitis but he is moving it so well not concerned about a septic joint or other emergent joint condition such as a fracture right now. With regards to his eyes, it is consistent with allergic nonprovider some going to advise that he get Pataday and use those as directed. Discharge Plan Triage Chief Complaint: Dental ED Provider: Del Delcid Dx/Rx/DC Orders Clinical Impression: Dental abscess, Gingivitis, acute, Acute pain of left wrist, Acute allergic conjunctivitis of both eyes Instructions: ED Conjunctivitis, Allergic, ED Dental Abscess Prescriptions: New amoxicillin 500 mg tablet 500 mg PO TID Qty: 30 0RF metronidazole 500 mg tablet 500 mg PO Q8H Qty: 30 0RF naproxen 500 mg tablet 500 mg PO BID PRN Qty: 14 0RF No Action albuterol sulfate [Ventolin HFA] 90 mcg/actuation HFA aerosol inhaler 1 - 2 puff inhalation Q4H PRN PRN (Reason: Wheezing) Qty: 1 0RF Primary Care Provider: Care Physician,No Primary Referrals: [facility] [Non-Staff] - (call for follow up appt if you need a primary care provider and/or dentist) Activity Restrictions/Additional Instructions: Also obtain Pataday eye drops and use as directed for your eyes. Print Language: Estonian Disposition Disposition: Home, Self Care
[2025-04-22] MEDS: AMOXICILLIN 500 MG CAPSULE PO (11:12)
[2025-04-22] MEDS: metroNIDAZOLE 500 MG Tablet PO (11:12)
[2025-04-22] MEDS: Naproxen 500 MG Tablet PO (11:12)
[2025-04-22 11:25] VITALS: BP 135/70; PULSE 88; RESP 15; TEMP 36.8; O2SAT 98
== END 2025-04-22 11:26 | disposition home or self-care (01) ==
PROVIDERS: Emergency Provider Emergency Medicine; Visit Provider Emergency Medicine
DX: K04.7 Periapical abscess without sinus (principal); K05.00 Acute gingivitis, plaque induced; M25.532 Pain in left wrist; H10.13 Acute atopic conjunctivitis, bilateral; K02.9 Dental caries, unspecified; J45.909 Unspecified asthma, uncomplicated; F17.210 Nicotine dependence, cigarettes, uncomplicated
CPT/HCPCS: 99283

== ENCOUNTER 2025-05-08 14:28 | Emergency (ER) | payer MEDICAID, SELFPAY ==
[2025-05-08 14:28] VITALS: BP 153/91; PULSE 114; RESP 18; TEMP 36.6; O2SAT 97; BMI 39.2
== END 2025-05-08 15:07 | disposition left against medical advice (07) ==
LOC: ED 15:56
DX: R42 Dizziness and giddiness (principal); E11.9 Type 2 diabetes mellitus without complications; Z53.21 Procedure and treatment not carried out due to patient leaving prior to being seen by health care provider
CPT/HCPCS: 99281